=== PATIENT | female | born 1990 | race Caucasian/White ===

== ENCOUNTER 2018-05-12 17:39 | Emergency (ER) | payer OTHER, SELFPAY ==
[2018-05-12 18:14] LABS: Urine Blood NEGATIVE (NEG); Urine Glucose NEGATIVE (NEG); Urine Protein NEGATIVE (NEG); Urine Specific Gravity 1.025 (1.005-1.030); Urine pH 6.5 (5.0-7.0)
[2018-05-12] MEDS ORDERED: NA CHLORIDE 0.9% 1,000 ML ONE (18:33)
[2018-05-12] MEDS ORDERED: ONDANSETRON 4 MG/2 ML VIAL ONE (18:33)
[2018-05-12 18:46] LABS: Absolute Lymphocytes (CBC) 0.8 K/uL (0.7-4.9); Absolute Monocytes 0.6 K/uL (0.1-1.3); Absolute Neutrophil 11.9 K/uL (1.8-8.0); Basophils % 0.2 % (0-1.3); Eosinophils % 0.4 % (0-4.4); Hematocrit 51.6 % (36.0-45.0); MCH 33.2 pg (27.0-35.0); MCV 97.9 fL (80-100); Monocytes % 4.3 % (3.3-12.3); RBC Red Blood Cell Count 5.27 M/uL (3.86-4.86)
[2018-05-12] MEDS ORDERED: KETOROLAC 30 MG/ML INJ ONE (19:51)
--- NOTE | 2018-05-12 20:13 | EDPHYS ---
Physician Documentation [facility] Name: Fatuma Fallon Age: 28 yrs Sex: Female : 1990 Arrival Date: 05/12/2018 Time: 17:43 Bed 11 Private MD: ED Physician Ant Meng HPI: 05/12 18:56 This 28 yrs old Female presents to ER via Ambulatory with complaints of jr8 Headache, Ear Pain, Diarrhea, Nausea. 18:56 Patient with sudden onset of headache, chills, n/v/d, stomach cramps, chest pressure. jr8 Severity of symptoms: At their worst the symptoms were moderate in the emergency department the symptoms are unchanged. The patient has not experienced similar symptoms in the past. The patient has not recently seen a physician. 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 - Social history:: Smoking status: Patient uses tobacco products, smokes one-half pack cigarettes per day, Patient/guardian denies using street drugs. - Ebola Screening: : Patient negative for fever greater than or equal to 101.5 degrees Fahrenheit, and additional compatible Ebola Virus Disease symptoms Patient denies exposure to infectious person Patient denies travel to an Ebola-affected area in the 21 days before illness onset No symptoms or risks identified at this time. ROS: 18:56 Eyes: Negative for injury, pain, redness, and discharge, ENT: Negative for injury, jr8 pain, and discharge, Neck: Negative for injury, pain, and swelling, Respiratory: Negative for shortness of breath, cough, wheezing, and pleuritic chest pain, Back: Negative for injury and pain, MS/Extremity: Negative for injury and deformity, Skin: Negative for injury, rash, and discoloration. 18:56 Constitutional: Positive for body aches, chills. 18:56 Cardiovascular: Positive for chest pain, Negative for edema, orthopnea, palpitations, paroxysmal nocturnal dyspnea. 18:56 Abdomen/GI: Positive for abdominal pain, nausea, vomiting, and diarrhea, Negative for abdominal distension, anorexia, dysphagia, hematemesis, black/tarry stool, rectal pain, rectal bleeding, bowel incontinence, flatulence. 18:56 Neuro: Positive for headache, Negative for altered mental status, dizziness, gait disturbance, hearing loss, loss of consciousness, numbness, seizure activity, speech changes, syncope, near syncope, tingling, tinnitus, tremor, visual changes, weakness. Exam: 18:56 Head/Face: Normocephalic, atraumatic. Eyes: Pupils equal round and reactive to light, jr8 extra-ocular motions intact. Lids and lashes normal. Conjunctiva and sclera are non-icteric and not injected. Cornea within normal limits. Periorbital areas with no swelling, redness, or edema. ENT: Nares patent. No nasal discharge, no septal abnormalities noted. Tympanic membranes are normal and external auditory canals are clear. Oropharynx with no redness, swelling, or masses, exudates, or evidence of obstruction, uvula midline. Mucous membranes moist. Neck: Trachea midline, no thyromegaly or masses palpated, and no cervical lymphadenopathy. Supple, full range of motion without nuchal rigidity, or vertebral point tenderness. No Meningismus. Respiratory: Lungs have equal breath sounds bilaterally, clear to auscultation and percussion. No rales, rhonchi or wheezes noted. No increased work of breathing, no retractions or nasal flaring. Abdomen/GI: Soft, non-tender, with normal bowel sounds. No distension or tympany. No guarding or rebound. No evidence of tenderness throughout. Back: No spinal tenderness. No costovertebral tenderness. Full range of motion. Skin: Warm, dry with normal turgor. Normal color with no rashes, no lesions, and no evidence of cellulitis. MS/ Extremity: Pulses equal, no cyanosis. Neurovascular intact. Full, normal range of motion. Neuro: Awake and alert, GCS 15, oriented to person, place, time, and situation. Cranial nerves II-XII grossly intact. Motor strength 5/5 in all extremities. Sensory grossly intact. Cerebellar exam normal. Normal gait. 18:56 Cardiovascular: Rate: tachycardic, Rhythm: regular, Pulses: Pulses are 2+ in right radial artery and left radial artery. Heart sounds: normal, normal S1and S2, no S3 or S4, no murmur, no rub, no gallop, Edema: is not appreciated, JVD: is not appreciated. Vital Signs: 17:49 BP 135 / 93; Pulse 122; Resp 18; Temp 98.7; Pulse Ox 99% on R/A; ch 17:49 Weight 81.65 kg; Height 5 ft. 4 in. (162.56 cm); Pain 5/10; ch 17:55 Weight 82.6 kg (M); rv 20:28 BP 133 / 89; Pulse 98; Pulse Ox 100% on R/A; rv 17:55 Body Mass Index 31.26 (82.60 kg, 162.56 cm) rv MDM: 17:55 Patient medically screened. jr8 20:11 Differential Diagnosis flu, viral illness, gastroenteritis, colitis. Data reviewed: 8 vital signs, nurses notes, lab test result(s), EKG. Data interpreted: Pulse oximetry: on room air is 99 %. Interpretation: normal. Counseling: I had a detailed discussion with the patient and/or guardian regarding: the historical points, exam findings, and any diagnostic results supporting the discharge/admit diagnosis, lab results, the need for outpatient follow up, a family practitioner, to return to the emergency department if symptoms worsen or persist or if there are any questions or concerns that arise at home. Response to treatment: the patient's symptoms have markedly improved after treatment. 05/12 18:07 Order name: Urine Dipstick--Ancillary (enter results); Complete Time: 18:15 hb 05/12 18:07 Order name: Urine --Ancillary (enter results); Complete Time: 18:15 hb 05/12 18:24 Order name: CBC with Diff; Complete Time: 18:56 8 05/12 18:24 Order name: Basic Metabolic Panel; Complete Time: 18:59 8 05/12 18:24 Order name: Influenza Screen (a \T\ B); Complete Time: 19:08 8 05/12 18:24 Order name: IV; Complete Time: 19:22 8 05/12 18:24 Order name: EKG - Nurse/Tech; Complete Time: 19:42 8 05/12 18:25 Order name: EKG; Complete Time: 18:25 jr8 Administered Medications: 18:30 Drug: NS 0.9% 1000 ml Route: IV; Rate: 1000 ml; Site: left antecubital; rv 19:43 Follow up: IV Status: Completed infusion rv 18:30 Drug: Zofran 4 mg Route: IVP; Site: left antecubital; rv 19:23 Follow up: Response: No adverse reaction rv 19:45 Drug: TORadol 30 mg Route: IVP; Site: left antecubital; rv 20:27 Follow up: Response: No adverse reaction rv Disposition: 05/13 09:33 Co-signature as Attending Physician, Ant Meng MD I agree with the assessment and margaret plan of care. Disposition: 05/12/18 20:12 Discharged to Home. Impression: Dehydration, Gastroenteritis, Viral infection, unspecified. - Condition is Stable. - Discharge Instructions: Dehydration, Adult, Viral Gastroenteritis, Adult. - Prescriptions for ondansetron 4 mg Oral tablet,disintegrating - place 1 tablet by TRANSLINGUAL route every 8 hours As needed; 12 tablet. - Medication Reconciliation Form, Thank You Letter, Antibiotic Education, Prescription Opioid Use form. - Follow up: Private Physician; When: 2 - 3 days; Reason: Recheck today's complaints, Continuance of care, Re-evaluation by your physician. - Problem is new. - Symptoms have improved. Signatures: Dispatcher [employer] EDLorraine Patel, RN Ant Marti ch, MD MD cha Roszak, Josh, PA PA jr8 Jonny Umaña RN RN rv Corrections: (The following items were deleted from the chart) 05/12 20:29 20:12 05/12/2018 20:12 Discharged to Home. Impression: Dehydration; Gastroenteritis; rv Viral infection, unspecified. Condition is Stable. Forms are Medication Reconciliation Form, Thank You Letter, Antibiotic Education, Prescription Opioid Use. Follow up: Private Physician; When: 2 - 3 days; Reason: Recheck today's complaints, Continuance of care, Re-evaluation by your physician. Problem is new. Symptoms have improved. jr8
--- NOTE | 2018-05-12 20:13 | ER ---
Nurse's Notes [facility] Name: Fatuma Fallon Age: 28 yrs Sex: Female : 1990 Arrival Date: 05/12/2018 Time: 17:43 Bed 11 Private MD: Diagnosis: Dehydration;Gastroenteritis;Viral infection, unspecified Presentation: 05/12 17:48 Presenting complaint: Patient states: diarrhea all morning, cant eat, nausea, headache, ch jaycob ear pain, stomach cramps/burning.s tarted this morning. Transition of care: patient was not received from another setting of care. Onset of symptoms was May 12, 2018 at 07:00. Risk Assessment: Do you want to hurt yourself or someone else? Patient reports no desire to harm self or others. Initial Sepsis Screen: Does the patient meet any 2 criteria? No. Patient's initial sepsis screen is negative. Does the patient have a suspected source of infection? No. Patient's initial sepsis screen is negative. Care prior to arrival: aldo this am. 17:48 Method Of Arrival: Ambulatory 17:48 Acuity: LANA 3 ch Triage Assessment: 17:55 Headache History: Denies prior headaches. General: Appears in no apparent distress. rv comfortable, Behavior is calm, cooperative. Pain: Pain currently is 7 out of 10 on a pain scale. Pain began gradually, Also complains of no other associated symptoms. 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 - Social history:: Smoking status: Patient uses tobacco products, smokes one-half pack cigarettes per day, Patient/guardian denies using street drugs. - Ebola Screening: : Patient negative for fever greater than or equal to 101.5 degrees Fahrenheit, and additional compatible Ebola Virus Disease symptoms Patient denies exposure to infectious person Patient denies travel to an Ebola-affected area in the 21 days before illness onset No symptoms or risks identified at this time. Screenin:54 Abuse screen: Denies threats or abuse. Denies injuries from another. Nutritional rv screening: No deficits noted. Tuberculosis screening: No symptoms or risk factors identified. Fall Risk None identified. Assessment: 17:53 General: Appears in no apparent distress. comfortable, Behavior is calm, cooperative. rv Pain: Complains of pain in abdomen. Neuro: Level of Consciousness is awake, alert, obeys commands, Oriented to person, place, time, situation. Cardiovascular: Capillary refill < 3 seconds. Respiratory: Airway is patent. GI: Reports lower abdominal pain. : No signs and/or symptoms were reported regarding the genitourinary system. EENT: No signs and/or symptoms were reported regarding the EENT system. Derm: Skin is intact. Vital Signs: 17:49 BP 135 / 93; Pulse 122; Resp 18; Temp 98.7; Pulse Ox 99% on R/A; ch 17:49 Weight 81.65 kg; Height 5 ft. 4 in. (162.56 cm); Pain 5/10; ch 17:55 Weight 82.6 kg (M); rv 20:28 BP 133 / 89; Pulse 98; Pulse Ox 100% on R/A; rv 17:55 Body Mass Index 31.26 (82.60 kg, 162.56 cm) rv ED Course: 17:43 Patient arrived in ED. mr 17:49 Triage completed. ch 17:49 Arm band placed on left wrist. Patient placed in an exam room, on a stretcher. ch 17:54 Patient has correct armband on for positive identification. Bed in low position. Call rv light in reach. Side rails up X 1. Adult w/ patient. Pulse ox on. NIBP on. 17:55 Fletcher Ugalde PA is [facility]. jr8 17:55 Ant Meng MD is Attending Physician. jr8 18:30 Inserted saline lock: 20 gauge in left antecubital area, using aseptic technique. rv 18:30 Initial lab(s) drawn, by me, sent to lab. Flu and/or RSV swab sent to lab. rv 20:29 No provider procedures requiring assistance completed. IV discontinued, bleeding rv controlled, No redness/swelling at site. Pressure dressing applied. Administered Medications: 18:30 Drug: NS 0.9% 1000 ml Route: IV; Rate: 1000 ml; Site: left antecubital; rv 19:43 Follow up: IV Status: Completed infusion rv 18:30 Drug: Zofran 4 mg Route: IVP; Site: left antecubital; rv 19:23 Follow up: Response: No adverse reaction rv 19:45 Drug: TORadol 30 mg Route: IVP; Site: left antecubital; rv 20:27 Follow up: Response: No adverse reaction rv Outcome: 20:12 Discharge ordered by MD. conklin 20:29 Discharged to home ambulatory. rv 20:29 Condition: good 20:29 Discharge instructions given to patient, Instructed on discharge instructions, follow up and referral plans. medication usage, Demonstrated understanding of instructions, follow-up care, medications, Prescriptions given X 1. 20:29 Patient left the ED. rv Signatures: Lorraine Sandoval, RN Radha Anguiano ch, Josh, PA PA jr8 Vicente, Ronaldo, RN RN rv
[2018-05-12 21:49] VITALS: TEMP 98.7
[2018-05-12 21:50] VITALS: BP 133/89; O2SAT 100
--- NOTE | 2018-05-13 07:51 | EKG ---
Test Date: 2018-05-12 Test Time: 19:40:01 Instructor Traffic Safety: MEASUREMENT RESULTS: Intervals: Rate: 90 MS: 148 QRSD: 74 QT: 352 QTc: 430 Seymour: P: 40 MS: 148 QRS: 42 T: 64 INTERPRETIVE STATEMENTS: Normal sinus rhythm Anteroseptal infarct, age undetermined Abnormal ECG No previous ECG available for comparison Electronically Signed On 05-13-18 07:50:59 CDT by Storm Sterling
== END 2018-05-12 20:29 | disposition home or self-care (01) ==
LOC: ER 17:39
DX: E86.0 Dehydration (principal); K52.9 Noninfective gastroenteritis and colitis, unspecified; B34.9 Viral infection, unspecified; F17.210 Nicotine dependence, cigarettes, uncomplicated
CPT/HCPCS: 36415; 80048; 81003; 81025; 85025; 87804; 93005; 96361; 96374; 96375; 99284; J2405; J7030

== ENCOUNTER 2020-10-24 23:18 | Emergency (ER) | payer BC, SELFPAY ==
--- OUTSIDE RECORDS SUMMARY | 2020-10-24 23:52 | XMS REPORT | Continuity of Care Document ---
:1990 Author Organization [facility] t Address [address] [place] [address] Care Team Providers Name Role Phone Provider, Urgent Care Attending Clinician Unavailable Doctor Unassigned, Name Attending Clinician Unavailable Problems This patient has no known problems. Allergies, Adverse Reactions, Alerts This patient has no known allergies or adverse reactions. Medications This patient has no known medications. Procedures This patient has no known procedures. Encounters Start End Encounter Admission Attending Care Care Encounter Source Date/Time Date/Time Type Type Clinicians Facility Department ID 2020-08-02 2020-08-02 Urgent Provider, [facility] [id number] 10:19:40 11:11:19 [facility] [id number] Care [place] [id number] Ivanna [id number] [address] 2020-08-02 2020-08-02 Letter Doctor PETERSON [id number] 00:00:00 00:00:00 (Out) Unassigned, LUÍS [id number] Bradley [facility] [id number] Results This patient has no known results.
[2020-10-24] MEDS ORDERED: NA CHLORIDE 0.9% 1,000 ML ONE (23:59)
[2020-10-25 00:33] LABS: Absolute Lymphocytes (CBC) 3.1 K/uL (0.7-4.9); Basophils % 0.8 % (0-1.3); Hematocrit 41.8 % (36.0-45.0); Lymphocytes % 41.7 % (15.3-44.8); MPV 10.5 fL (7.6-11.3); RBC Red Blood Cell Count 4.31 M/uL (3.86-4.86)
[2020-10-25 00:50] LABS: BUN Blood Urea Nitrogen 8 mg/dL (7-18); Bicarbonate 22 mmol/L (21-32); Glucose Level 96 mg/dL (74-106); Potassium 3.9 mmol/L (3.5-5.1); Sodium Level 140 mmol/L (136-145); Troponin (Emerg Dept Use Only) < 0.02 ng/mL (0.0-0.045)
[2020-10-25 01:25] LABS: Urine Glucose NEGATIVE (Negative); Urine Specific Gravity 1.015 (1.005-1.030)
[2020-10-25 01:26] LABS: Urine Blood NEGATIVE (Negative); Urine Protein NEGATIVE (Negative)
[2020-10-25 01:37] LABS: Urine Bacteria <20 /HPF (<20); Urine RBC <5 /HPF (NONE SEEN)
--- NOTE | 2020-10-25 02:41 | ER ---
Nurse's Notes [facility] Name: Fatuma Fallon Age: 30 yrs Sex: Female : 1990 Arrival Date: 10/24/2020 Time: 23:20 Bed 6 Private MD: Diagnosis: Palpitations Presentation: 10/24 23:30 Chief complaint: Patient states: chest pain with palpitations dizziness and shortness em of breath for 1 week. Coronavirus screen: Client denies travel out of the [place] in the last 14 days. Ebola Screen: Patient negative for fever greater than or equal to 101.5 degrees Fahrenheit, and additional compatible Ebola Virus Disease symptoms Patient denies exposure to infectious person. Patient denies travel to an Ebola-affected area in the 21 days before illness onset. No symptoms or risks identified at this time. Initial Sepsis Screen: Does the patient meet any 2 criteria? No. Patient's initial sepsis screen is negative. Does the patient have a suspected source of infection? No. Patient's initial sepsis screen is negative. Risk Assessment: Do you want to hurt yourself or someone else? Patient reports no desire to harm self or others. Onset of symptoms was October 21, 2020. 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 - Social history:: Smoking status: Patient reports the use of cigarette tobacco products, denies chronic smoking, but will smoke occasionally. - Family history:: not pertinent. - Hospitalizations: : No recent hospitalization is reported. Screenin:38 Abuse screen: Denies threats or abuse. Nutritional screening: No deficits noted. ea Tuberculosis screening: No symptoms or risk factors identified. Fall Risk None identified. Assessment: 10/25 00:00 General: Appears in no apparent distress. Behavior is calm, cooperative, appropriate ea for age. Pain: Complains of pain in chest Pain does not radiate. Neuro: Level of Consciousness is awake, alert, obeys commands, Oriented to person, place, time, situation. Cardiovascular: Reports chest pain, Patient's skin is warm and dry. Respiratory: Airway is patent Respiratory effort is even, unlabored, Respiratory pattern is regular, symmetrical. Derm: Skin is pink, warm \T\ dry. 02:22 Reassessment: Patient and/or family updated on plan of care and expected duration. Pain ea level reassessed. Patient is alert, oriented x 3, equal unlabored respirations, skin warm/dry/pink. 02:53 Reassessment: Patient and/or family updated on plan of care and expected duration. Pain ea level reassessed. Patient is alert, oriented x 3, equal unlabored respirations, skin warm/dry/pink. Discharge instruction given to patient verbalized the understanding of instruction. Pt left ED ambulatory tolerating well. Vital Signs: 10/24 23:30 BP 145 / 103; Pulse 85; Resp 18; Temp 98.9(O); Pulse Ox 100% on R/A; Weight 74.84 kg; em Height 5 ft. 1 in. (154.94 cm); Pain 0/10; 23:30 Body Mass Index 31.18 (74.84 kg, 154.94 cm) em ED Course: 23:20 Patient arrived in ED. ag3 23:23 Rogerio Goldsmith MD is Attending Physician. rn 23:31 Triage completed. em 23:32 Arm band placed on. em 23:38 Sandra Connolly, DEMOND is Primary Nurse. ea 23:38 Patient has correct armband on for positive identification. Bed in low position. Call ea light in reach. monitoring manager on. Pulse ox on. NIBP on. 23:38 Patient maintains SpO2 saturation greater than 95% on room air. ea 23:55 Inserted saline lock: 22 gauge in left forearm, using aseptic technique. Blood ds4 collected. 10/25 00:08 XRAY Chest (1 view) In Process Unspecified. EDMS 00:20 Urine Microscopic Only Sent. ds4 00:20 Urine Dipstick--Ancillary (enter results) Sent. ds4 02:48 Carter Willoughby MD is Referral Physician. rn 02:54 No provider procedures requiring assistance completed. IV discontinued, intact, ea bleeding controlled, No redness/swelling at site. Pressure dressing applied. Administered Medications: 10/24 23:46 Drug: NS 0.9% 1000 ml Route: IV; Rate: 1000 ml; Site: left antecubital; ea Outcome: 10/25 02:40 Discharge ordered by . rn 02:54 Discharged to home ambulatory. ea 02:54 Condition: stable 02:54 Discharge instructions given to patient, Instructed on discharge instructions, follow up and referral plans. Demonstrated understanding of instructions, follow-up care. 02:54 Patient left the ED. ea Signatures: Dispatcher [employer] Marc Keith RN Rogerio Segura MD MD rn Swanson, Donovan ds4 Sandra Connolly RN RN ea Gomez, Alice ag3
--- NOTE | 2020-10-25 02:41 | EDPHYS ---
Physician Documentation [facility] Name: Fatuma Fallon Age: 30 yrs Sex: Female : 1990 Arrival Date: 10/24/2020 Time: 23:20 Bed 6 Private MD: ED Physician Rogerio Goldsmith HPI: 10/25 00:12 This 30 yrs old Female presents to ER via Ambulatory with complaints of Chest rn Pain. 00:12 The patient presents with a history of heart skipping beats. Context: The symptoms rn occur at rest, with anxiety. Onset: The symptoms/episode began/occurred 1 week(s) ago. Duration: The patient or guardian reports multiple episodes, that are intermittent. Modifying factors: The symptoms are aggravated by nothing. The symptoms are alleviated by nothing. Severity of symptoms: At their worst the symptoms were moderate in the emergency department the symptoms have improved. The patient has experienced a previous episode. Reports palpitations, feels like "skipping beats", intermittent for 1 week. No syncope/chest pain. Reports last for seconds then goes away, not worse or better with anything. Has happened once before and told that was either smoking related or a manifestation of her anxiety. Parents with cardiac problems but not until later in life. No change in medication.. 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 - Social history:: Smoking status: Patient reports the use of cigarette tobacco products, denies chronic smoking, but will smoke occasionally. - Family history:: not pertinent. - Hospitalizations: : No recent hospitalization is reported. ROS: 10/25 00:14 Constitutional: Negative for fever, chills, and weight loss, Eyes: Negative for injury, rn pain, redness, and discharge, Neck: Negative for injury, pain, and swelling, Cardiovascular: Negative for edema Respiratory: Negative for cough, wheezing, and pleuritic chest pain, Abdomen/GI: Negative for abdominal pain, nausea, vomiting, diarrhea, and constipation, Back: Negative for injury and pain, MS/Extremity: Negative for injury and deformity, Skin: Negative for injury, rash, and discoloration, Neuro: Negative for headache, numbness, tingling, and seizure. Exam: 00:14 Constitutional: This is a well developed, well nourished patient who is awake, alert, rn and in no acute distress. Ambulatory to room without difficulty or distress. Head/Face: Normocephalic, atraumatic. Eyes: Pupils equal round and reactive to light, extra-ocular motions intact. Lids and lashes normal. Conjunctiva and sclera are non-icteric and not injected. Cornea within normal limits. Periorbital areas with no swelling, redness, or edema. Cardiovascular: Regular rate and rhythm. No pulse deficits. Respiratory: No increased work of breathing, no retractions or nasal flaring. Abdomen/GI: soft, non-tender Skin: Warm, dry with normal turgor. Normal color with no rashes, no lesions, and no evidence of cellulitis. MS/ Extremity: Pulses equal, no cyanosis. Neurovascular intact. Full, normal range of motion. Equal circumference. Neuro: Awake and alert, GCS 15, oriented to person, place, time, and situation. Cranial nerves II-XII grossly intact. Motor strength 5/5 in all extremities. Sensory grossly intact. Cerebellar exam normal. Normal gait. 00:16 ECG was reviewed by the Attending Physician. rn Vital Signs: 10/24 23:30 BP 145 / 103; Pulse 85; Resp 18; Temp 98.9(O); Pulse Ox 100% on R/A; Weight 74.84 kg; em Height 5 ft. 1 in. (154.94 cm); Pain 0/10; 23:30 Body Mass Index 31.18 (74.84 kg, 154.94 cm) em MDM: 23:23 Patient medically screened. rn 10/25 02:39 Differential diagnosis: arrythmia, dehydration, stress disorder. Data reviewed: vital rn signs, nurses notes, lab test result(s), EKG, radiologic studies, plain films, and as a result, I will discharge patient. Counseling: I had a detailed discussion with the patient and/or guardian regarding: the historical points, exam findings, and any diagnostic results supporting the discharge/admit diagnosis, lab results, radiology results, the need for outpatient follow up, to return to the emergency department if symptoms worsen or persist or if there are any questions or concerns that arise at home. Response to treatment: the patient's condition has returned to base line, the patient is now symptom free, and as a result, I will discharge patient. Special discussion: I discussed with the patient/guardian in detail that at this point there is no indication for admission to the hospital. It is understood, however, that if the symptoms persist or worsen the patient needs to return immediately for re-evaluation. Based on the history and exam findings, there is no indication for further emergent testing or inpatient evaluation. I discussed with the patient/guardian the need to see the dope edger for further evaluation of the symptoms. I discussed with the patient/guardian the need to see the primary care provider for further evaluation of the symptoms. ED course: No arrhythmia on monitor, single pvc on ECG, neg trop and ddimer, stable vitals, BP 118/80 and asymptomatic. Will dc home with pcp and cardiology f/u, but told her most importantly to stop smoking.. 02:41 Counseling: I had a detailed discussion with the patient and/or guardian regarding: rn smoking cessation. 10/24 23:36 Order name: Basic Metabolic Panel rn 10/24 23:36 Order name: CBC with Diff; Complete Time: 00:46 rn 10/24 23:36 Order name: Magnesium; Complete Time: 02:38 rn 10/24 23:36 Order name: Troponin (emerg Dept Use Only); Complete Time: 02:38 rn 10/24 23:36 Order name: Urine Microscopic Only; Complete Time: 02:38 rn 10/24 23:36 Order name: TSH; Complete Time: 02:38 rn 10/24 23:36 Order name: XRAY Chest (1 view) rn 10/24 23:36 Order name: T4 Free; Complete Time: 02:38 rn 10/24 23:37 Order name: Basic Metabolic Panel; Complete Time: 02:38 EDMS 10/25 00:14 Order name: D-Dimer rn 10/25 00:14 Order name: D-Dimer; Complete Time: 00:46 EDMS 10/25 00:19 Order name: Urine Dipstick--Ancillary (enter results); Complete Time: 02:38 ds4 10/25 00:20 Order name: Urine --Ancillary (enter results) ds4 10/25 00:20 Order name: Urine --Ancillary; Complete Time: 02:38 EDMS 10/24 23:36 Order name: EKG; Complete Time: 23:37 rn 10/24 23:36 Order name: Cardiac monitoring; Complete Time: 00:02 rn 10/24 23:36 Order name: EKG - Nurse/Tech; Complete Time: 00:02 rn 10/24 23:36 Order name: IV Saline Lock; Complete Time: 23:52 rn 10/24 23:36 Order name: Labs collected and sent; Complete Time: 23:51 rn 10/24 23:36 Order name: O2 Per Protocol; Complete Time: 23:51 rn 10/24 23:36 Order name: O2 Sat Monitoring; Complete Time: 23:51 rn 10/24 23:36 Order name: Urine Test (obtain specimen); Complete Time: 00: rn 10/24 23:36 Order name: Urine Dipstick-Ancillary (obtain specimen); Complete Time: 00:03 rn EC:16 Rate is 81 beats/min. Rhythm is irregular. QRS [place] is Normal. DC interval is normal. rn QRS interval is normal. QT interval is normal. No Q waves. T waves are Normal. No ST changes noted. Clinical impression: NSR with sinus arrhythmia and PVC. Interpreted by me. Reviewed by me. Administered Medications: 10/24 23:46 Drug: NS 0.9% 1000 ml Route: IV; Rate: 1000 ml; Site: left antecubital; ea Disposition: 10/25/20 02:40 Discharged to Home. Impression: Palpitations. - Condition is Stable. - Discharge Instructions: Palpitations. - Medication Reconciliation Form, Thank You Letter, Antibiotic Education, Prescription Opioid Use form. - Follow up: Carter Wilolughby MD; When: As needed; Reason: Recheck today's complaints, Re-evaluation by your physician. - Problem is new. - Symptoms have improved. Signatures: Dispatcher [employer] [facility] Marc Odom RN Rogerio Segura MD MD rn Antunez, Elena, RN RN ea Corrections: (The following items were deleted from the chart) 10/25 00:15 00:12 Reports palpitations, feels like "skipping beats", intermittent for 1 week. No rn syncope/chest pain. Reports last for seconds then goes away, not worse or better with anything. Has happened once before and told that was either smoking related or anxiety. . rn 02:48 02:40 10/25/2020 02:40 Discharged to Home. Impression: Palpitations. Condition is rn Stable. Forms are Medication Reconciliation Form, Thank You Letter, Antibiotic Education, Prescription Opioid Use. Follow up: Private Physician; When: As needed; Reason: Recheck today's complaints, Re-evaluation by your physician. Problem is new. Symptoms have improved. rn 02:54 02:48 10/25/2020 02:40 Discharged to Home. Impression: Palpitations. Condition is ea Stable. Discharge Instructions: Palpitations. Forms are Medication Reconciliation Form, Thank You Letter, Antibiotic Education, Prescription Opioid Use. Follow up: Carter Willoughby; When: As needed; Reason: Recheck today's complaints, Re-evaluation by your physician. Problem is new. Symptoms have improved. rn
[2020-10-25 04:54] VITALS: BP 145/103; TEMP 98.9; O2SAT 100
--- NOTE | 2020-10-25 10:23 | RAD REPORT ---
EXAM DESCRIPTION: Chest Radiography COMPARISON: None. CLINICAL HISTORY: [facility] MAIN CHEST PAIN FINDINGS: A single AP view of the chest demonstrates a normal cardiomediastinal silhouette. No pneumothorax or pleural effusion. No consolidation or pulmonary edema. Osseous structures are intact. IMPRESSION: No acute chest process. Electronically signed by: Vinh Gómez MD 10/25/2020 12:16 AM CDT Due to temporary technical issues with the PACS/Fluency reporting system, reports are being signed by the in house radiologist without review as a courtesy to ensure prompt reporting. The interpreting r adiologist is fully responsible for the content of the report.
--- NOTE | 2020-10-25 17:01 | EKG ---
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
[2020-11-01 15:26] LABS: Urine Blood Negative (Negative); Urine Glucose Negative (Negative); Urine Protein Negative (Negative); Urine Specific Gravity 1.015 (1.005-1.030)
== END 2020-10-25 02:54 | disposition home or self-care (01) ==
LOC: ER 23:18
DX: R00.2 Palpitations (principal); F41.9 Anxiety disorder, unspecified; F17.210 Nicotine dependence, cigarettes, uncomplicated
CPT/HCPCS: 93005; 85025; 80048; 36415; 83735; 81025; 85379; 84443; 84484; 84439; 71045; J7030; 81003; 81015; 99285

== ENCOUNTER 2021-07-16 09:07 | Emergency (ER) | payer BC ==
--- OUTSIDE RECORDS SUMMARY | 2021-07-16 09:11 | XMS REPORT | Continuity of Care Document ---
:1990 Author Organization [facility] t Address [address] [place] [address] Care Team Providers Name Role Phone Provider, Urgent Care Attending Clinician Unavailable BRAULIO, Duarte Attending Clinician Unavailable Doctor Unassigned, Name Attending Clinician Unavailable Payers Payer Name Policy Type Policy Number Effective Date Expiration Date S [facility] [id number] 2020 00:00:00 Problems This patient has no known problems. Allergies, Adverse Reactions, Alerts Allergy Allergy Status Severity Reaction(s) Onset Inactive Treating Comm ents Source Name Type Date Date Clinician NO KNOWN Drug [facility] Medic[facility] This patient has no known medications. Procedures This patient has no known procedures. Encounters Start End Encounter Admission Attending Care Care Encounter Source Date/Time Date/Time Type Type Clinicians Facility Department ID 2020-08-02 2020-08-02 [facility] [id number] 10:19:40 11:11:19 [facility] [id number] [facility] [id number] Ivanna [id number] [address] 2020-08-02 2020-08-02 Outpatient Montez RAMSEY [facility] [id number] 10:20:00 10:20:00 RUPERTO [facility] 2020-08-02 2020-08-02 Outpatient Montez RAMSEY [facility] [id number] 08:35:00 08:35:00 RUPERTO [facility] 2020-08-02 2020-08-02 Letter Doctor NICHOLAS [id number] 00:00:00 00:00:00 (Out) Unassigned, LUÍS [id number] [place] [facility] [id number] Results This patient has no known results.
--- NOTE | 2021-07-16 10:17 | ER ---
Nurse's Notes [facility] Name: Fatuma Fallon Age: 31 yrs Sex: Female : 1990 Arrival Date: 07/16/2021 Time: 09:10 Bed 12 Private MD: Diagnosis: Acute upper respiratory infection, unspecified;Acute bronchitis, unspecified Presentation: 07/16 09:20 Chief complaint: Patient states: Sinus pain and pressure, bilateral ear pain, ww congestion, sore throat, nausea, diarrhea and burning in chest when taking a deep breath. Symptoms started a week ago and has progressively gotten worse. Coronavirus screen: Vaccine status: Patient reports being unvaccinated. Client denies travel out of the [place] in the last 14 days. congestion, diarrhea, nausea, runny nose, sore throat. Ebola Screen: Patient negative for fever greater than or equal to 101.5 degrees Fahrenheit, and additional compatible Ebola Virus Disease symptoms Patient denies exposure to infectious person. Patient denies travel to an Ebola-affected area in the 21 days before illness onset. Initial Sepsis Screen: Does the patient meet any 2 criteria? No. Patient's initial sepsis screen is negative. Does the patient have a suspected source of infection? No. Patient's initial sepsis screen is negative. Risk Assessment: Do you want to hurt yourself or someone else? Patient reports no desire to harm self or others. Onset of symptoms was July 09, 2021. 09:20 Method Of Arrival: Ambulatory 09:20 Acuity: LANA 4 Triage Assessment: 09:23 Headache History: The patient has had previous headaches and this one is similar to previous episodes. General: Appears well groomed, well developed, well nourished, Behavior is calm, cooperative, appropriate for age. Pain: Complains of pain in forehead, right eye, right cheek, nose, left cheek and left eye Pain currently is 5 out of 10 on a pain scale. Pain began gradually, Also complains of nausea. EENT: Reports nasal congestion. Neuro: Level of Consciousness is awake, alert, obeys commands, Oriented to person, place, time, situation, Gait is steady, Speech is normal. Cardiovascular: No deficits noted. Denies chest pain, Capillary refill < 3 seconds. Respiratory: Reports cough that is pain with cough Airway is patent Respiratory effort is even, unlabored, Respiratory pattern is regular, symmetrical. GI: No deficits noted. Parent/caregiver reports the patient having diarrhea, nausea. : No deficits noted. No signs and/or symptoms were reported regarding the genitourinary system. Derm: No deficits noted. No signs and/or symptoms reported regarding the dermatologic system. Skin is intact, is healthy with good turgor, Skin is pink, warm \T\ dry. Musculoskeletal: No deficits noted. No signs and/or symptoms reported regarding the musculoskeletal system. 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 - Social history:: Smoking status: Patient reports the use of cigarette tobacco products. Screenin:53 Abuse screen: Denies threats or abuse. Nutritional screening: No deficits noted. ap3 Tuberculosis screening: No symptoms or risk factors identified. Fall Risk None identified. Assessment: 09:52 General: Appears in no apparent distress. Behavior is calm, cooperative, appropriate ap3 for age, Reports chills for >3 days, fever for > 3 days, feeling ill for > 3 days, fatigue for >3 days. Pain: Complains of pain in generalized body aches Pain began for approx one week. Neuro: Level of Consciousness is awake, alert, obeys commands, Oriented to person, place, time, situation, Appropriate for age Gait is steady, Speech is normal. Cardiovascular: Capillary refill < 3 seconds Patient's skin is warm and dry. Respiratory: Reports cough that is productive, Airway is patent Respiratory effort is even, unlabored, Respiratory pattern is regular, symmetrical, Breath sounds are clear bilaterally. the patient has mild shortness of breath. 11:58 Reassessment: notified patient of test results via phone call. ap3 Vital Signs: 09:20 BP 121 / 83; Pulse 88; Resp 18; Temp 98.3(O); Pulse Ox 100% ; Weight 77.11 kg; Height 5 ww ft. 4 in. (162.56 cm); Pain 0/10; 09:20 Body Mass Index 29.18 (77.11 kg, 162.56 cm) Hannah Coma Score: 10:17 Eye Response: spontaneous(4). Verbal Response: oriented(5). Motor Response: obeys margaret commands(6). Total: 15. ED Course: 09:10 Patient arrived in ED. rg4 09:23 Triage completed. ww 09:23 Arm band placed on right wrist. ww 09:29 Ant Meng MD is Attending Physician. margaret 09:32 Cara Silva, RN is Primary Nurse. ap3 09:53 Patient has correct armband on for positive identification. Call light in reach. Side ap3 rails up X 1. Pulse ox on. NIBP on. Door closed. Noise minimized. 09:53 No provider procedures requiring assistance completed. Patient did not have IV access ap3 during this emergency room visit. Administered Medications: No medications were administered Outcome: 10:16 Discharge ordered by . margaret 10:24 Discharged to home ambulatory. ap3 10:24 Condition: good 10:24 Discharge instructions given to patient, Instructed on discharge instructions, follow up and referral plans. medication usage, Demonstrated understanding of instructions, follow-up care, medications, Prescriptions given X 2. 10:24 Patient left the ED. ap3 Signatures: Ant Meng MD MD cha Garcia, Rubi rg4 Cara Silva, RN RN ap3 Melonie Correia RN RN
--- NOTE | 2021-07-16 10:17 | EDPHYS ---
Physician Documentation [facility] Name: Fatuma Fallon Age: 31 yrs Sex: Female : 1990 Arrival Date: 07/16/2021 Time: 09:10 Bed 12 Private MD: NELIDA Physician Ant Meng HPI: 07/16 10:07 This 31 yrs old Female presents to ER via Ambulatory with complaints of margaret Headache, Sore Throat, Ear Pain, Breathing Difficulty. 10:07 The patient complains of pain to the forehead, left frontal area and right frontal margaret area. The patient describes the headache as aching. Onset: The symptoms/episode began/occurred 5 day(s) ago. 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 - Social history:: Smoking status: Patient reports the use of cigarette tobacco products. ROS: 10:12 Constitutional: Negative for fever, chills, and weight loss, Eyes: Negative for injury, margaret pain, redness, and discharge, ENT: Negative for injury, pain, and discharge, Neck: Negative for injury, pain, and swelling, Cardiovascular: Negative for chest pain, palpitations, and edema, Abdomen/GI: Negative for abdominal pain, nausea, vomiting, diarrhea, and constipation, Back: Negative for injury and pain, : Negative for injury, bleeding, discharge, and swelling, MS/Extremity: Negative for injury and deformity, Skin: Negative for injury, rash, and discoloration, Neuro: Negative for headache, weakness, numbness, tingling, and seizure, Psych: Negative for depression, anxiety, suicide ideation, homicidal ideation, and hallucinations, Allergy/Immunology: Negative for hives, rash, and allergies, Endocrine: Negative for neck swelling, polydipsia, polyuria, polyphagia, and marked weight changes. 10:12 Respiratory: Positive for cough, with no reported sputum. Exam: 10:12 Constitutional: This is a well developed, well nourished patient who is awake, alert, margaret and in no acute distress. Head/Face: Normocephalic, atraumatic. Eyes: Pupils equal round and reactive to light, extra-ocular motions intact. Lids and lashes normal. Conjunctiva and sclera are non-icteric and not injected. Cornea within normal limits. Periorbital areas with no swelling, redness, or edema. ENT: Nares patent. No nasal discharge, no septal abnormalities noted. Tympanic membranes are normal and external auditory canals are clear. Oropharynx with no redness, swelling, or masses, exudates, or evidence of obstruction, uvula midline. Mucous membranes moist. Neck: Trachea midline, no thyromegaly or masses palpated, and no cervical lymphadenopathy. Supple, full range of motion without nuchal rigidity, or vertebral point tenderness. No Meningismus. Chest/axilla: Normal chest wall appearance and motion. Nontender with no deformity. No lesions are appreciated. Cardiovascular: Regular rate and rhythm with a normal S1 and S2. No gallops, murmurs, or rubs. Normal PMI, no JVD. No pulse deficits. Respiratory: Lungs have equal breath sounds bilaterally, clear to auscultation and percussion. No rales, rhonchi or wheezes noted. No increased work of breathing, no retractions or nasal flaring. Back: No spinal tenderness. No costovertebral tenderness. Full range of motion. Female : Normal external genitalia. Skin: Warm, dry with normal turgor. Normal color with no rashes, no lesions, and no evidence of cellulitis. MS/ Extremity: Pulses equal, no cyanosis. Neurovascular intact. Full, normal range of motion. Neuro: Awake and alert, GCS 15, oriented to person, place, time, and situation. Cranial nerves II-XII grossly intact. Motor strength 5/5 in all extremities. Sensory grossly intact. Cerebellar exam normal. Normal gait. Psych: Awake, alert, with orientation to person, place and time. Behavior, mood, and affect are within normal limits. 10:12 Respiratory: the patient does not display signs of respiratory distress, Respirations: normal, Breath sounds: are clear throughout, Respiratory rate: 18 10:12 Musculoskeletal/extremity: DVT Exam: No signs of deep vein thrombosis. no pain, no swelling, no tenderness, negative Homans' sign noted on exam, no appreciated bluish discoloration, no erythema, no increased warmth. Vital Signs: 09:20 BP 121 / 83; Pulse 88; Resp 18; Temp 98.3(O); Pulse Ox 100% ; Weight 77.11 kg; Height 5 ww ft. 4 in. (162.56 cm); Pain 0/10; 09:20 Body Mass Index 29.18 (77.11 kg, 162.56 cm) ww Hamer Coma Score: 10:17 Eye Response: spontaneous(4). Verbal Response: oriented(5). Motor Response: obeys [facility] commands(6). Total: 15. MDM: 09:29 Patient medically screened. [facility] 10:17 Antibiotic administration: The patient is discharged and will get outpatient [facility] antibiotics, Amoxicillin. Differential diagnosis: bronchitis, flu, sinusitis. Differential Diagnosis: Bronchitis Influenza Upper Respiratory Infection Sinusitis Pharyngitis Allergic Rhinitis Pneumonia. Data reviewed: vital signs, nurses notes, lab test result(s). Data interpreted: gambling monitor: rate is 88 beats/min, Pulse oximetry: is not applicable for this patient encounter. Counseling: I had a detailed discussion with the patient and/or guardian regarding: the historical points, exam findings, and any diagnostic results supporting the discharge/admit diagnosis, lab results, the need for outpatient follow up, for definitive care, a family practitioner. 07/16 10:07 Order name: Strep ap3 07/16 10:08 Order name: Group A Streptococcus Rapid Sc EDMS Administered Medications: No medications were administered Disposition Summary: 07/16/21 10:16 Discharge Ordered Location: Home [facility] Problem: new [facility] Symptoms: have improved margaret Condition: Stable margaret Diagnosis - Acute upper respiratory infection, unspecified margaret - Acute bronchitis, unspecified margaret Followup: margaret - With: Private Physician - When: 2 - 3 days - Reason: Recheck today's complaints, Continuance of care, Re-evaluation by your physician Discharge Instructions: - Discharge Summary Sheet margaret - Acute Bronchitis, Adult margaret - Upper Respiratory Infection, Adult margaret - Cool Mist Vaporizer margaret - Acute Bronchitis, Adult, Pdki-rj-Giat margaret - Upper Respiratory Infection, Adult, Abdl-ro-Ekbe margaret - Cough, Adult margaret Forms: - Medication Reconciliation Form margaret - Thank You Letter margaret - Antibiotic Education margaret - Prescription Opioid Use [facility] Prescriptions: - Bromfed DM 2-30-10 mg/5 mL Oral syrup - take 10 milliliter by ORAL route every 6 hours; 180 milliliter; Refills: 0, [facility] Product Selection Permitted - Amoxicillin 500 mg Oral Capsule - take 1 capsule by ORAL route every 8 hours for 10 days; 30 tablet; Refills: 0, [facility] Product Selection Permitted Signatures: Dispatcher [employer] Ant Prince MD MD cha Wood, Whitney RN RN ww Corrections: (The following items were deleted from the chart) 10:08 10:08 Group A Streptococcus Rapid [id number].LAB.BRZ ordered. EDUT EDUT
[2021-07-16 10:29] VITALS: BP 121/83; TEMP 98.3; O2SAT 100
[2021-07-16 11:18] LABS: SARS-COV-2 RT PCR NEGATIVE (NEGATIVE)
== END 2021-07-16 10:24 | disposition home or self-care (01) ==
LOC: ER 09:07
DX: J20.9 Acute bronchitis, unspecified (principal); J06.9 Acute upper respiratory infection, unspecified; F31.9 Bipolar disorder, unspecified; Z20.822 Contact with and (suspected) exposure to COVID-19; Z72.0 Tobacco use
CPT/HCPCS: 87070; 87081; 0240U; 99283

== ENCOUNTER 2022-05-20 20:30 | Emergency (ER) | payer BC ==
[2012-02-09 02:54] VITALS: BP 107/70
--- OUTSIDE RECORDS SUMMARY | 2022-05-20 20:34 | XMS REPORT | Continuity of Care Document ---
:1990 Author Organization [facility] t Address [address] [place] [address] Care Team Providers Name Role Phone PAM HORNE JR Primary Care Physician Unavailable LENCHO MELTON Attending Clinician Unavailable CELESTE WOODALL Attending Clinician Unavailable Celeste Woodall PA-C Attending Clinician EPI MONZON Attending Clinician Unavailable Epi Monzon MD Attending Clinician Doctor Unassigned, [place] Attending Clinician Unavailable Provider, [facility] Attending Clinician Unavailable RUPERTO RAMSEY Attending Clinician Unavailable Payers Payer Name Policy Type Policy Number Effective Date Expiration Date Roby sauer [facility] [id number] 2022 00:00:00 BCBS [facility] [id number] 2020 00:00:00 Problems Condition Condition Condition Status Onset Resolution Last Treating Co mments Source Name Details Category Date Date Treatment Clinician Date Acute Acute Disease Active 2021-07 Marlene pharyngiti pharyngiti 0-06 Se evanold s s 00:00: - 00 Externa l Obesity Obesity Disease Active Univers (BMI (BMI 8-18 ity of 30-39.9) 30-39.9) 00:00: [place] [address] Medical Branch Allergies, Adverse Reactions, Alerts Allergy Allergy Status Severity Reaction(s) Onset Inactive Treating Comm ents Source Name Type Date Date Clinician NO KNOWN Drug Active Univers ALLERGIE Class ity of S [place] [facility] [place] Social History Social Habit Start Date Stop Date Quantity Comments Source History of tobacco Cigarette Smoker Marlene Medina - use External History [facility] o f Alcohol Comment [place] [facility] Exposure to 2022-03-18 2022-03-28 Not sure University of SARS-CoV-2 (event) 00:00:00 12:52:00 [facility] Alcohol intake 2022-03-28 2022-03-28 Current drinker Unive rsity of 00:00:00 00:00:00 of alcohol [place] [facility] (finding) Branch Cigarettes smoked 2020-08-02 2020-08-02 Univers ity of current (pack per 00:00:00 00:00:00 [facility] ) - Reported Branch Tobacco use and 2020-08-02 2020-08-02 Smokeless Universit y of exposure 00:00:00 00:00:00 tobacco non-user [facility] dical Branch History [facility] 2020-08-02 2020-08-02 2 University o f Alcohol Frequency 00:00:00 00:00:00 [facility] edical Branch History [facility] 2020-08-02 2020-08-02 1 University o f Alcohol Std Drinks 00:00:00 00:00:00 [place] [facility] History [facility] 2020-08-02 2020-08-02 1 University o f Alcohol Binge 00:00:00 00:00:00 [place] [facility] Sex Assigned At [birth year] Marlene Rosas ybold - 00:00:00 00:00:00 External Smoking Status Start Date Stop Date Source Smokes tobacco daily 2022-05-02 00:00:00 Marlene Medina - External Medications Ordered Filled Start Stop Current Ordering Indication Dosage Frequency Signature Comments Components Source Medication Medication Date Date Medication? Clinician (SIG) Name Name Benzonatate 2021-07 Yes [id number] 100mg [id number] Take 1 Marlene (Tessalon 0-06 [id number] capsule S cash Pierce) 100 00:00: 3D (100 mg - MG oral 00 total) by Externa Capsule mouth 3 l times daily as needed for cough Azithromyci 2021-07- Yes [id number] Take 2 Marlene n 250 MG 0-06 10-12 tablets by Seyb old oral Tablet 00:00: 04:59 mouth on - 00 :00 day 1 then Externa 1 tablet l by mouth daily for 4 days thereafter . norethindro 0 Yes [id number] 1{tbl} Take 1 Univers ne-e.estrad 8-18 tablet by ity of ioL-iron 00:00: mouth in [place] (LO 00 the Medical LOESTRIN morning. Branch FE) 1 mg-10 mcg (24)/10 mcg (2) per tablet norethindro Yes [id number] 1{tbl} Take 1 Univers ne-e.estrad 8-18 tablet by ity of ioL-iron 00:00: mouth in [place] (LO 00 the Medical LOESTRIN morning. Branch FE) 1 mg-10 mcg (24)/10 mcg (2) per tablet norethindro Yes [id number] 1{tbl} Take 1 Univers ne-e.estrad 8-18 tablet by ity of ioL-iron 00:00: mouth in [place] (LO 00 the Medical LOESTRIN morning. Branch FE) 1 mg-10 mcg (24)/10 mcg (2) per tablet benzonatate 0 Yes [id number] 100mg Take 1 Univers (TESSALON 1-06 capsule by ity of [place]) 100 00:00: mouth 3 [place] as mg capsule 00 (three) Medica l times Branch daily. azelastine Yes [id number] 1{spray Use 1 Univers 137 mcg 1-06 } [place] in ity of (0.1 %) 00:00: each [place] nasal spray 00 nostril 2 Med ical (two) Branch times daily. Use in each nostril as directed benzonatate 0 Yes [id number] 100mg Take 1 Univers (TESSALON 1-06 capsule by ity of [place]) 100 00:00: mouth 3 [place] as mg capsule 00 (three) Medica l times Branch daily. azelastine Yes [id number] 1{spray Use 1 Univers 137 mcg 1-06 } [place] in ity of (0.1 %) 00:00: each [place] nasal spray 00 nostril 2 Med ical (two) Branch times daily. Use in each nostril as directed benzonatate Yes [id number] 100mg Take 1 Univers (TESSALON 1-06 capsule by Jeannine) 100 00:00: mouth 3 [place] as mg capsule 00 (three) Medica l times Branch daily. azelastine Yes [id number] 1{spray Use 1 Univers 137 mcg 1-06 } [place] in ity of (0.1 %) 00:00: each [place] nasal spray 00 nostril 2 Med ical (two) Branch times daily. Use in each nostril as directed Vital Signs Vital Name Observation Time Observation Value Comments Source Heart rate 2022-05-02 20:07:00 100 /min Marlene S cash - External Body temperature 2022-05-02 20:07:00 36.89 Aline Paula hdez Vaughnold - External Respiratory rate 2022-05-02 20:07:00 14 /min Paula hdez Seevanold - External Body height 2022-05-02 20:07:00 162.6 cm Marlene Ca cash - External Body weight 2022-05-02 20:07:00 87.091 kg Marlene hdezchris - External BMI 2022-05-02 20:07:00 32.96 kg/m2 Marlene Ca cash - External Systolic blood 2022-05-02 20:07:00 114 mm[Hg] Marlene Medina - pressure External Diastolic blood 2022-05-02 20:07:00 64 mm[Hg] Marcelle Medina - pressure External Systolic blood 2022-03-28 18:17:00 109 mm[Hg] Gautam fishmany [facility] Diastolic blood 2022-03-28 18:17:00 72 mm[Hg] [facility] Heart rate 2022-03-28 18:17:00 63 /min [facility] Body temperature 2022-03-28 18:17:00 37 Aline [facility] Respiratory rate 2022-03-28 18:17:00 18 /min [facility] Body height 2022-03-28 18:17:00 165.1 cm [facility] Body weight 2022-03-28 18:17:00 85.458 kg [facility] BMI 2022-03-28 18:17:00 31.35 kg/m2 [facility] Procedures Procedure Date / Time Performing Clinician Source Performed US PELVIS COMPLETE WITH 2022-03-28 21:11:00 Celeste Woodall [facility] TRANSVAGINAL [facility] Encounters Start End Encounter Admission Attending Care Care Encounter Source Date/Time Date/Time Type Type Clinicians Facility Department ID 2022-05-30 2022-05-30 Outpatient MARLENE MELTON [id number] Marlene 14:15:00 14:15:00 LENCHO myles 2022-05-07 2022-05-07 Outpatient R [facility] [id number] Univers 15:00[facility]00 [facility] 2022-05-02 Outpatient MARLENE MELTON [id number] Marlene 15:15:00 15:15:00 LENCHO myles 2022-03-28 2022-03-28 Outpatient R JOSE C [facility] [id number] Univers 15:09:33 23:59:[address] [facility] [place] [place] 2022-03-28 2022-03-28 [facility] Jose [facility] [id number] Univers 15:09:33 23:59:00 Encounter Celeste STEPHENS [id number] [facility] [id number] [facility] [id number] [facility] 806 Branch 2022-03-28 2022-03-28 Outpatient R EPI MONZON [facility] [id number] Univers 13:30:00 13:56:[facility] 2022-03-28 2022-03-28 Office Epi Monzon [facility] [id number] Univers 13:30:00 13:56:28 Visit Freddy STEPHENS [id number] i ty [facility] [id number] [id number] Tn dical [facility] [address] 2022-03-28 2022-03-28 Outpatient R EPI MONZON [facility] [id number] Univers 13:00:00 13:00:[address] [facility] [place] [place] 2022 2022 Office Jose C [facility] [id number] Univers 14:15:00 15:12:40 Visit Celeste BERNARDWINDY [id number] i ty of [id number] [id number] [address] 2022 2022 Outpatient R JOSE C [facility] [id number] Univers 14:15:00 [facility]:12:[facility] [place] [place] 2022 2022 Outpatient R JOSE C [facility] [id number] Univers 14:15:00 15:12:40 [facility] 2022 2022 Outpatient R JOSE C [facility] [id number] Univers 14:15:00 15:12:40 [facility] 2022 2022 Orders Doctor NICHOLAS [id number] Univers 00:00:00 00:00:00 Only Unassigned, LUÍS [id number] ity of [place] [facility] [id number] [place] [id number] [address] 2020-08-02 2020-08-02 Urgent Provider, [facility] [id number] 10:19:40 11:11:19 Care Bertrand [facility] [id number] Care [place] [id number] Professio [id number] [address]al [address] 2020-08-02 2020-08-02 Outpatient R BRAULIO [facility] [id number] Univers 10:20:00 10:20:[address] [facility] [place] [place] 2020-08-02 2020-08-02 Outpatient R BRAULIO, [facility] [id number] Univers 08:35:00 08:35:[address] [facility] [place] 2020-08-02 2020-08-02 Letter Doctor NICHOLAS [id number] 00:00:00 00:00:00 (Out) Unassigned, LUÍS [id number] [place] [facility] [id number] Results This patient has no known results.
--- NOTE | 2022-05-20 21:47 | ER ---
Nurse's Notes [facility] Name: Fatuma Fallon Age: 32 yrs Sex: Female : 1990 Arrival Date: 05/20/2022 Time: 20:33 Bed Waiting Private MD: Diagnosis: ED Course: 05/20 20:33 Patient arrived in ED. am2 21:29 [facility]. Unable to locate patient. Will as6 disposition as left without being seen by a provider. Administered Medications: No medications were administered Outcome: 21:46 Patient left the ED. as6 Signatures: Cara Russell am2 Raciel Chavez, RN RN as6
== END 2022-05-20 21:46 | disposition left against medical advice (07) ==
LOC: ER 20:30
DX: Z02.9 Encounter for administrative examinations, unspecified (principal)

== ENCOUNTER 2022-09-25 11:32 | Emergency (ER) | payer BC ==
--- OUTSIDE RECORDS SUMMARY | 2022-09-25 11:59 | XMS REPORT | Continuity of Care Document ---
:1990 Author Organization [facility] t Address [address] [place] [address] Care Team Providers Name Role Phone PAM HORNE JR Primary Care Physician Unavailable LENCHO MELTON Attending Clinician Unavailable CELESTE WOODALL Attending Clinician Unavailable Celeste Woodall PA-C Attending Clinician EPI MONZON Attending Clinician Unavailable Epi Monzon MD Attending Clinician Doctor Unassigned, [place] Attending Clinician Unavailable Provider, [facility] Attending Clinician Unavailable RUPERTO RAMSEY Attending Clinician Unavailable Payers Payer Name Policy Type Policy Number Effective Date Expiration Date Roby sauer [facility] [id number] 2022 00:00:[address] [facility] [id number] 2020 00:00:00 Problems Condition Condition Condition Status Onset Resolution Last Treating Co mments Source Name Details Category Date Date Treatment Clinician Date Acute Acute Disease Active 2021-07 Marlene pharyngiti pharyngiti 0-06 Se evanold s s 00:00: - 00 Externa l Obesity Obesity Disease Active Univers (BMI (BMI 8-18 ity of 30-39.9) 30-39.9) 00:00: [place] [address] [facility] Branch Allergies, Adverse Reactions, Alerts Allergy Allergy Status Severity Reaction(s) Onset Inactive Treating Comm ents Source Name Type Date Date Clinician NO KNOWN Drug Active Univers ALLERGIE Class ity of S [place] [facility] [place] Social History Social Habit Start Date Stop Date Quantity Comments Source History of tobacco Cigarette Smoker Marlene Medina - use External History [facility] o f Alcohol Comment [place] [facility] Exposure to 2022-03-18 2022-03-28 Not sure University of SARS-CoV-2 (event) 00:00:00 12:52:00 [facility] Alcohol intake 2022-03-28 2022-03-28 Current drinker Unive rsity of 00:00:00 00:00:00 of alcohol [place] [facility] (finding) Branch Cigarettes smoked 2020-08-02 2020-08-02 Univers ity of current (pack per 00:00:00 00:00:00 [facility] ) - Reported Branch Tobacco use and 2020-08-02 2020-08-02 Smokeless Universit y of exposure 00:00:00 00:00:00 tobacco non-user [facility] dical Branch History [facility] 2020-08-02 2020-08-02 2 University o f Alcohol Frequency 00:00:00 00:00:00 [facility] edical Branch History [facility] 2020-08-02 2020-08-02 1 University o f Alcohol Std Drinks 00:00:00 00:00:00 [place] [facility] History [facility] 2020-08-02 2020-08-02 1 University o f Alcohol Binge 00:00:00 00:00:00 [place] [facility] Sex Ass[birth year] At [birth year] Marlene Rosas ybold - 00:00:00 00:00:00 External Smoking Status Start Date Stop Date Source Smokes tobacco daily 2022-05-02 00:00:00 Marlene Medina - External Medications Ordered Filled Start Stop Current Ordering Indication Dosage Frequency Signature Comments Components Source Medication Medication Date Date Medication? Clinician (SIG) Name Name Benzonatate 2021-07 Yes [id number] 100mg Q.[id number] Take 1 Marlene (Tessalon 0-06 [id number] capsule S cash Pierce) 100 00:00: 3D (100 mg - MG oral 00 total) by Externa Capsule mouth 3 l times daily as needed for cough Azithromyci 2021-07- No [id number] Take 2 Marlene n 250 MG 0-06 10-12 tablets by Seyb old oral Tablet 00:00: 04:59 mouth on - 00 :00 day 1 then Externa 1 tablet l by mouth daily for 4 days thereafter . norethindro 0 Yes [id number] 1{tbl} Take 1 Univers ne-e.estrad 8-18 tablet by ity of ioL-iron 00:00: mouth in [place] (LO 00 the Medical LOESTRIN morning. Branch FE) 1 mg-10 mcg (24)/10 mcg (2) per tablet norethindro 0 Yes [id number] 1{tbl} Take 1 Univers ne-e.estrad 8-18 tablet by ity of ioL-iron 00:00: mouth in [place] (LO 00 the Medical LOESTRIN morning. Branch FE) 1 mg-10 mcg (24)/10 mcg (2) per tablet norethindro 0 Yes [id number] 1{tbl} Take 1 Univers ne-e.estrad 8-18 tablet by ity of ioL-iron 00:00: mouth in [place] (LO 00 the Medical LOESTRIN morning. Branch FE) 1 mg-10 mcg (24)/10 mcg (2) per tablet benzonatate 2020-0 Yes [id number] 100mg Take 1 Univers (TESSALON 1-06 capsule by ity of [place]) 100 00:00: mouth 3 [place] as mg capsule 00 (three) Medica l times Branch daily. azelastine 0 Yes [id number] 1{spray Use 1 Univers 137 mcg 1-06 } Given in ity of (0.1 %) 00:00: each [place] nasal spray 00 nostril 2 Med ical (two) Branch times daily. Use in each nostril as directed benzonatate 2020-0 Yes [id number] 100mg Take 1 Univers (TESSALON 1-06 capsule by ity of [place]) 100 00:00: mouth 3 [place] as mg capsule 00 (three) Medica l times Branch daily. azelastine Yes [id number] 1{spray Use 1 Univers 137 mcg 1-06 } Given in ity of (0.1 %) 00:00: each [place] nasal spray 00 nostril 2 Med ical (two) Branch times daily. Use in each nostril as directed benzonatate Yes [id number] 100mg Take 1 Univers (TESSALON 1-06 capsule by Jeannine) 100 00:00: mouth 3 [place] as mg capsule 00 (three) Medica l times Branch daily. azelastine Yes [id number] 1{spray Use 1 Univers 137 mcg 1-06 } Given in ity of (0.1 %) 00:00: each [place] nasal spray 00 nostril 2 Med ical [...] blood 2022-03-28 18:17:00 109 mm[Hg] Gautam fishmany [facility] Diastolic blood 2022-03-28 18:17:00 72 mm[Hg] [facility] Heart rate 2022-03-28 18:17:00 63 /min [facility] Body temperature 2022-03-28 18:17:00 37 Aline [facility] Respiratory rate 2022-03-28 18:17:00 18 /min [facility] Body height 2022-03-28 18:17:00 165.1 cm [facility] Body weight 2022-03-28 18:17:00 85.458 kg [facility] BMI 2022-03-28 18:17:00 31.35 kg/m2 [facility] Procedures Procedure Date / Time Performing Clinician Source Performed US PELVIS COMPLETE WITH 2022-03-28 21:11:00 Celeste Woodall [facility] TRANSVAGINAL [facility] Encounters Start End Encounter Admission Attending Care Care Encounter Source Date/Time Date/Time Type Type Clinicians Facility Department ID 2022-05-30 2022-05-30 Outpatient MARLENE MELTON [id number] Marlene 14:15:00 14:15:00 LENCHO myles 2022-05-07 2022-05-07 Outpatient R [facility] [id number] Univers 15:00[facility]22-[facility]-02 2022-05-02 Outpatient MARLENE MELTON [id number] Marlene 15:15:00 15:15:00 LENCHO myles 2022-03-28 2022-03-28 Outpatient R JOSE C [facility] [id number] Univers 15:09:33 23:59:00 CELESTE ina [facility] 2022-03-28 2022-03-28 [email or web address] [id number] Univers 15:09:33 23:59:00 Encounter Celeste STEPHENS [id number] [facility] [id number] [facility] [id number] [facility] 806 Branch 2022-03-28 2022-03-28 Outpatient R EPI MONZON [facility] [id number] Univers 13:30:00 13:56:28 [facility] 2022-03-28 2022-03-28 Office Epi Monzon [facility] [id number] Univers 13:30:00 13:56:28 Visit Freddy STEPHENS [id number] i ty of [facility] [id number] [id number] Or dical [facility] [address] [facility] 2022-03-28 2022-03-28 Outpatient R EPI MONZON [facility] [id number] Univers 13:00:00 13:00:00 ity [facility] 2022 2022 Office Jose C [facility] [id number] Univers 14:15:00 15:12:40 Visit Celeste BERNARDWINDY [id number] i ty [place]2.[place] [id number] [address] 2022 2022 Outpatient R JOSE C [facility] [id number] Univers 14:15:00 15:12:40 [facility] 2022 2022 Outpatient R JOSE C [facility] [id number] Univers 14:15:00 15:12:40 [facility] 2022 2022 Outpatient R JOSE C [facility] [id number] Univers 14:15:00 15:12:40 [facility] 2022 2022 Orders Doctor NICHOLAS [id number] Univers 00:00:00 00:00:00 Only Unassigned, LUÍS [id number] ity of [place] [facility] [id number] [place] [id number] [address] 2020-08-02 2020-08-02 Urgent Provider, [facility] [id number] 10:19:40 11:11:19 Care [facility] [id number] Care [place] [id number] Professio [id number] [address]al [address] 2020-08-02 2020-08-02 Outpatient R BRAULIO [facility] [id number] Univers 10:20:00 10:20:00 RUPERTO moncada [facility] 2020-08-02 2020-08-02 Outpatient R BRAULIO, [facility] [id number] Univers 08:35:00 08:35:00 RUPERTO moncada [facility] 2020-08-02 2020-08-02 Letter Doctor NICHOLAS [id number] 00:00:00 00:00:00 (Out) Unassigned, LUÍS [id number] [place] [facility] [id number] [id number] Results This patient has no known results.
[2022-09-25 12:45] LABS: Urine Blood Negative (Negative); Urine Glucose Negative (Negative); Urine Protein Negative (Negative); Urine Specific Gravity 1.025 (1.005-1.030); Urine pH 5.5 (5.0-7.0)
[2022-09-25 13:01] LABS: Urine Specific Gravity/Preg 1.025 (1.005-1.030)
[2022-09-25 13:30] LABS: Hematocrit 44.4 % (36.0-45.0); Lymphocytes % 30.5 % (15.3-44.8); MCV 96.6 fL (80-100); MPV 9.4 fL (7.6-11.3)
[2022-09-25 13:54] LABS: Albumin 3.7 g/dL (3.4-5.0); Bilirubin Total 0.4 mg/dL (0.2-1.0); Potassium 4.4 mmol/L (3.5-5.1); Protein, Total 7.5 g/dL (6.4-8.2)
[2022-09-25] MEDS ORDERED: ONDANSETRON 4 MG/2 ML VIAL ONE (13:54)
[2022-09-25] MEDS ORDERED: KETOROLAC 30 MG/ML INJ ONE (13:54)
[2022-09-25] MEDS ORDERED: NA CHLORIDE 0.9% 1,000 ML ONE (13:55)
--- NOTE | 2022-09-25 14:38 | RAD REPORT ---
EXAM DESCRIPTION: CTAbdomen Pelvis W Contrast - 09/25/2022 2:32 pm CLINICAL HISTORY: Abdominal pain. ABD PAIN COMPARISON: No comparisons TECHNIQUE: Biphasic CT imaging of the abdomen and pelvis was performed with 100 ml non-ionic IV cont rast. All CT scans are performed using dose optimization technique as appropriate and may include automated exposure control or mA/KV adjustment according to patient size. FINDINGS: The lung bases are clear. The liver, spleen, pancreas, adrenal glands and kidneys are within normal limits. No bowel obstruction, free air, free fluid or abscess. The appendix is normal. No evidence of signi ficant lymphadenopathy. No suspicious bony findings. IMPRESSION: No acute intra-abdominal or pelvic finding.
--- NOTE | 2022-09-25 15:29 | RAD REPORT ---
EXAM DESCRIPTION: US - Transvaginal Study Probe - 09/25/2022 3:16 pm CLINICAL HISTORY: ABD PAIN Pelvic pain. COMPARISON: Chest Abdomen Pelvis W Cont dated 07/01/2022; Chest Abdomen Pelvis W Cont dated 03/29/2022; Chest Abdomen Pelvis W Cont dated 12/04/2021Transvaginal Study Probe dated 02/21/2021 FINDINGS: The uterus is normal in size, shape and echotexture. The uterus measures 7.6 x 5.3 x 3.9 c m The endometrial stripe measures 1 mm, normal. Both ovaries are normal in size, shape and echotexture. The right ovary measures 4.2 x 2.6 cm. The left ovary measures 2.8 x 1.4 cm. No ovarian or parovarian lesions. No adnexal masses. Normal Doppler blood flow was demonstrated to both ovaries. No significant pelvic ascites. IMPRESSION: No acute process identified.
--- NOTE | 2022-09-25 15:32 | EDPHYS ---
Physician Documentation [facility] Name: Fatuma Fallon Age: 32 yrs Sex: Female : 1990 Arrival Date: 09/25/2022 Time: 11:35 Bed 9 Private MD: NELIDA Physician Ant Meng HPI: 09/25 15:49 This 32 yrs old Female presents to ER via Ambulatory with complaints of Abdominal Pain, kb Nausea. 15:49 The patient presents with abdominal pain in the lower abdomen. Onset: The kb symptoms/episode began/occurred yesterday. The symptoms do not radiate. Associated signs and symptoms: Pertinent positives: nausea, Pertinent negatives: diarrhea, fever, vomiting. The symptoms are described as constant. Modifying factors: The symptoms are alleviated by nothing, the symptoms are aggravated by pressure. Severity of pain: At its worst the pain was moderate in the emergency department the pain is unchanged. The patient has not experienced similar symptoms in the past. The patient has not recently seen a physician. Historical: - Allergies: 12:15 No Known Allergies; ss - PMHx: 12:15 Anxiety; Bipolar disorder; mitral valve prolapse; PTSD; ss - PSHx: 12:15 None; ss - Immunization history:: Client reports having NOT received the Covid vaccine. - Social history:: Smoking status: Patient reports the use of cigarette tobacco products, smokes one-half pack cigarettes per day. ROS: 15:49 Constitutional: Negative for fever, chills, and weight loss. kb 15:49 Abdomen/GI: Positive for abdominal pain, nausea, Negative for vomiting, diarrhea. 15:49 All other systems are negative. Exam: 15:49 Constitutional: This is a well developed, well nourished patient who is awake, alert, kb and in no acute distress. Head/Face: Normocephalic, atraumatic. ENT: Moist Mucous membranes Cardiovascular: Regular rate and rhythm with a normal S1 and S2. No gallops, murmurs, or rubs. No pulse deficits. Respiratory: Respirations even and unlabored. No increased work of breathing. Talking in full sentences Skin: Warm, dry with normal turgor. Normal color. MS/ Extremity: Pulses equal, no cyanosis. Neurovascular intact. Full, normal range of motion. Neuro: Awake and alert, GCS 15, oriented to person, place, time, and situation. Moves all extremities. Normal gait. 15:49 Abdomen/GI: Inspection: abdomen appears normal, Bowel sounds: normal, in all quadrants, Palpation: soft, in all quadrants, mild abdominal tenderness, in the right lower quadrant, moderate abdominal tenderness, in the suprapubic area and left lower quadrant. Vital Signs: 12:14 BP 117 / 82; Pulse 87; Resp 14; Temp 98.8(TE); Pulse Ox 100% on R/A; Weight 87.54 kg; ss Height 5 ft. 4 in. (162.56 cm); Pain 8/10; 12:16 BP 117 / 82; ss 12:14 Body Mass Index 33.13 (87.54 kg, 162.56 cm) ss MDM: 11:41 Patient medically screened. kb 15:47 Differential diagnosis: appendicitis, diverticulitis, non-specific abd pain, Ovarian kb Torsion, urinary tract infection, Ovarian cyst. Data reviewed: vital signs, nurses notes. I considered the following discharge prescriptions or medication management in the emergency department I discussed and recommended Over The Counter medications. Counseling: I had a detailed discussion with the patient and/or guardian regarding: the historical points, exam findings, and any diagnostic results supporting the discharge/admit diagnosis, lab results, radiology results, the need for outpatient follow up, a family practitioner, to return to the emergency department if symptoms worsen or persist or if there are any questions or concerns that arise at home. 15:47 ED course: Patient is a 32-year-old female who presents with lower abdominal pain and kb nausea that started yesterday. Denies fever, vomiting, diarrhea, urinary symptoms, vaginal bleeding or discharge. On exam patient has moderate tenderness to suprapubic area and left lower quadrant, mild tenderness to right lower quadrant. CT, serum labs, urinalysis and ultrasound done and reviewed. Patient educated on diagnostic results and given printed copy. Educated to follow-up with PCP and possibly pharmaceutical sales versus spring assembler. Educated on use of heating pad and prescribed medications for symptoms. Verbal understanding received.. 09/25 11:47 Order name: CBC with Diff; Complete Time: 13:57 kb 09/25 11:47 Order name: CMP; Complete Time: 14:05 kb 09/25 11:47 Order name: Lipase; Complete Time: 14:05 kb 09/25 11:47 Order name: CT Abd/Pelvis - IV Contrast Only; Complete Time: 14:39 kb 09/25 11:47 Order name: IV Saline Lock; Complete Time: 13:14 kb 09/25 11:47 Order name: Labs collected and sent; Complete Time: 13:14 kb 09/25 11:47 Order name: Urine Dipstick-Ancillary (obtain specimen); Complete Time: 13:14 kb 09/25 12:45 Order name: Urine Dipstick-Ancillary; Complete Time: 12:45 EDMS 09/25 12:51 Order name: Urine --Ancillary (enter results); Complete Time: 13:03 bd 09/25 14:46 Order name: US Transvaginal Study (Probe); Complete Time: 15:31 kb Administered Medications: 13:50 Drug: NS 0.9% 1000 ml Route: IV; Rate: 1 bolus; Site: right antecubital; [facility] 13:50 Drug: TORadol - (ketorolac) 15 mg Route: IVP; Site: right antecubital; [facility] 13:50 Drug: Zofran (Ondansetron) 4 mg Route: IVP; Site: right antecubital; [facility] Disposition Summary: 09/25/22 15:32 Discharge Ordered Location: Home kb Condition: Stable kb Diagnosis - Lower abdominal pain, unspecified kb Followup: kb - With: Emergency Department - When: As needed - Reason: Worsening of condition Followup: kb - With: Private Physician - When: 2 - 3 days - Reason: Recheck today's complaints, Continuance of care, Re-evaluation by your physician Discharge Instructions: - Discharge Summary Sheet kb - Pelvic Pain, Female, [id number] kb - Abdominal Pain, Adult, [id number] kb Forms: - Medication Reconciliation Form kb - Thank You Letter kb - Antibiotic Education kb - Prescription Opioid Use kb Prescriptions: - Zofran 4 mg Oral Tablet - take 1 tablet by ORAL route every 8 hours As needed; 20 tablet; Refills: 0, kb Product Selection Permitted - Diclofenac Sodium 75 mg Oral tablet,delayed release (DR/EC) - take 1 tablet by ORAL route 2 times per day As needed; 30 tablet; Refills: 0, kb Product Selection Permitted Signatures: Dispatcher [employer] EDSarah Liu, JAY-C JAY-Velma Monroe RN RN ss Edelmira Ahumada, RN RN [id number]
--- NOTE | 2022-09-25 15:32 | ER ---
Nurse's Notes [facility] Name: Fatuma Fallon Age: 32 yrs Sex: Female : 1990 Arrival Date: 09/25/2022 Time: 11:35 Bed 9 Private MD: Diagnosis: Lower abdominal pain, unspecified Presentation: 09/25 12:14 Chief complaint: Patient states: lower abd pain that began yesterday. + nausea. ss Coronavirus screen: Client denies travel out of the [place] in the last 14 days. Ebola Screen: Patient denies exposure to infectious person. Patient denies travel to an Ebola-affected area in the 21 days before illness onset. Initial Sepsis Screen: Does the patient meet any 2 criteria? No. Patient's initial sepsis screen is negative. Does the patient have a suspected source of infection? No. Patient's initial sepsis screen is negative. Risk Assessment: Do you want to hurt yourself or someone else? Patient reports no desire to harm self or others. Onset of symptoms was September 24, 2022. 12:14 Method Of Arrival: Ambulatory ss 12:14 Acuity: LANA 3 ss Historical: - Allergies: 12:15 No Known Allergies; ss - PMHx: 12:15 Anxiety; Bipolar disorder; mitral valve prolapse; PTSD; ss - PSHx: 12:15 None; ss - Immunization history:: Client reports having NOT received the Covid vaccine. - Social history:: Smoking status: Patient reports the use of cigarette tobacco products, smokes one-half pack cigarettes per day. Vital Signs: 12:14 BP 117 / 82; Pulse 87; Resp 14; Temp 98.8(TE); Pulse Ox 100% on R/A; Weight 87.54 kg; ss Height 5 ft. 4 in. (162.56 cm); Pain 8/10; 12:16 BP 117 / 82; ss 12:14 Body Mass Index 33.13 (87.54 kg, 162.56 cm) ED Course: 11:35 Patient arrived in ED. rg4 11:36 Sarah [facility]astelum [facility]-C [facility] kb 11:36 Ant Meng MD is Attending Physician. kb 12:15 Triage completed. ss 12:15 Arm band placed on right wrist. ss 14:34 CT Abd/Pelvis - IV Contrast Only In Process Unspecified. EDMS 15:18 US Transvaginal Study (Probe) In Process Unspecified. EDMS Administered Medications: 13:50 Drug: NS 0.9% 1000 ml Route: IV; Rate: 1 bolus; Site: right antecubital; 5 13:50 Drug: TORadol - (ketorolac) 15 mg Route: IVP; Site: right antecubital; [facility] 13:50 Drug: Zofran (Ondansetron) 4 mg Route: IVP; Site: right antecubital; [facility] Outcome: 15:32 Discharge ordered by MD. miranda 15:53 Discharged to home ambulatory. [facility] 15:53 Condition: good 15:53 Discharge instructions given to patient. 15:54 Patient left the ED. [facility] Signatures: Dispatcher [employer] EDMS Sarah Gastelum, MACHINE TOOL TECHNOLOGY INSTRUCTOR-C JYA-Velma Monroe, RN Supriya Lopez rg4 Edelmira Ahumaad RN RN 5
[2022-09-25 16:03] VITALS: BP 117/82; TEMP 98.8; O2SAT 100
== END 2022-09-25 15:54 | disposition home or self-care (01) ==
LOC: ER 11:32
DX: R10.30 Lower abdominal pain, unspecified (principal); R11.0 Nausea; F17.210 Nicotine dependence, cigarettes, uncomplicated
CPT/HCPCS: 85025; 36415; 81025; 81003; 83690; 80053; 74177; 76830; Q9967; J7030; J2405

== ENCOUNTER 2023-09-05 23:25 | Emergency (ER) | payer BC ==
--- OUTSIDE RECORDS SUMMARY | 2023-09-05 23:29 | XMS REPORT | Continuity of Care Document ---
Author Name Unknown Address [address] [facility] [address] [place] [address] [facility] thconnect Address [address] [facility] [place] [address] Care Team Providers Care Cosmetic Chemist Name Role Phone Nam Gillespie Jr. Primary Care Physician + [phone] EPI MONZON Attending Clinician Unavailable Celeste Woodall PA-C Attending Clinician [phone] CELESTE WOODALL Attending Clinician Unavailable Doctor Unassigned, [place] Attending Clinician U Epi Velez MD Attending Clinician [phone] LENCHO MELTON Attending Clinician Unavailable Provider, [facility] Attending Clinician Un available RUPERTO RAMSEY Attending Clinician Unavailable Payers Payer Name Policy Type Policy Number Effective Date Expirati on Date Source BCBS 2 [id number] 2022 00:00:00 Problems Condition Name Condition Details Condition Category Status Onset Date Resolution Date Last Treatment Date Treating Clinician Comments Source Acute pharyngiti s Acute pharyngiti s Disease Active 2021-07 0-06 00:00: 00 Marlene Medina - Externa l Obesity (BMI 30-39.9) Obesity (BMI 30-39.9) Disease Active 03-14 00:00: 00 [facility] Allergies, Adverse Reactions, Alerts Allergy Name Allergy Type Status Severity Reaction(s) Onset Date Inactive Date Treating Clinician Comments Source NO KNOWN ALLERGIE S Drug Class Active [facility] Social History Social Habit Start Date Stop Date Quantity Comments Source [facility] SDOH Alcohol Comment [place] [facility] History of tobacco use Cigarette Smoker Marlene hunter - External Alcohol intake 2023-05-05 00:00:00 2023-05-05 00:00:00 Current drinker of alcohol (finding) [facility] Exposure to SARS-CoV-2 (event) 2022-03-18 00:00:00 2022-03-28 12:52:[address] [facility] History of Social function 2020-08-02 00:00:00 2020-08-02 00:00:00 [facility] Cigarettes smoked current (pack per day) - Reported 2020-08-02 00:00:00 2020-08-02 00:00:00 [facility] Tobacco use and exposure 2020-08-02 00:00:00 2020-08-02 00:00:00 Smokeless tobacco non-user [facility] History SDOH Alcohol Frequency 2020-08-02 00:00:00 2020-08-02 00:00:[address] [facility] History SDOH Alcohol Std Drinks 2020-08-02 00:00:00 2020-08-02 00:00:[address] [facility] History SDOH Alcohol Binge 2020-08-02 00:00:00 2020-08-02 00:00:[address] [facility] Sex Assigned At 1990 00:00:00 1990 00:00:00 Marlene Medina - External Smoking Status Start Date Stop Date Source Smokes tobacco daily 2020-08-02 00:00:00 [facility] Medications Ordered Medication Name Filled Medication Name Start Date Stop Date Current Medication? Ordering Clinician Indication Dosage Frequency Signature (SIG) Comments Components Source kenneth melaraestrad ioL-iron (LO LOESTRIN FE) 1 mg-10 mcg (24)/10 mcg (2) per tablet 2022-07 00:00: 00 Yes [id number] 1{tbl} Take 1 tablet by mouth in the morning. [facility] metroNIDAZO LE 500 mg tablet 2022-07 00:00: 00 Yes [id number] 500mg Take 1 tablet by mouth every 12 (twelve) hours. [facility] metroNIDAZO LE 500 mg tablet 2022-07 00:00: 00 Yes [id number] 500mg Take 1 tablet by mouth every 12 (twelve) hours. [facility] fluconazole 150 mg tablet 2022-07 00:00: 00 05-06 04:59 :00 No [id number] 150mg Take 1 tablet by mouth once now for 1 dose. [facility] fluconazole 150 mg tablet 2022-07 00:00: 00 05-06 04:59 :00 No [id number] 150mg Take 1 tablet by mouth once now for 1 dose. [facility] metoprolol succinate XL 100 mg 24 hr tablet 04-23 00:00: 00 Yes [facility] metoprolol succinate XL 100 mg 24 hr tablet 04-23 00:00: 00 Yes [facility] metoprolol succinate XL 100 mg 24 hr tablet 04-23 00:00: 00 Yes [facility] metoprolol succinate XL 100 mg 24 hr tablet 04-23 00:00: 00 Yes [facility] metoprolol succinate XL 100 mg 24 hr tablet 04-23 00:00: 00 Yes [facility] DULoxetine 60 mg capsule 04-08 00:00: 00 Yes [facility] DULoxetine 60 mg capsule 04-08 00:00: 00 Yes [facility] DULoxetine 60 mg capsule 04-08 00:00: 00 Yes [facility] DULoxetine 60 mg capsule 0 04-08 00:00: 00 Yes [facility] DULoxetine 60 mg capsule 0 04-08 00:00: 00 Yes [facility] zolpidem 12.5 mg CR tablet 0 03-05 00:00: 00 Yes [facility] zolpidem 12.5 mg CR tablet 0 03-05 00:00: 00 Yes [facility] zolpidem 12.5 mg CR tablet 0 03-05 00:00: 00 Yes [facility] zolpidem 12.5 mg CR tablet 0 03-05 00:00: 00 Yes [facility] zolpidem 12.5 mg CR tablet 0 03-05 00:00: 00 Yes [facility] ondansetron 4 mg disintegrat ing tablet 2022-0 02-21 00:00: 00 Yes [facility] ondansetron 4 mg disintegrat ing tablet 0 02-21 00:00: 00 Yes [facility] ondansetron 4 mg disintegrat ing tablet 0 02-21 00:00: 00 Yes [facility] ondansetron 4 mg disintegrat ing tablet 0 02-21 00:00: 00 Yes [facility] ondansetron 4 mg disintegrat ing tablet 0 02-21 00:00: 00 Yes [facility] LORazepam 1 mg tablet 0 02-04 00:00: 00 Yes [facility] LORazepam 1 mg tablet 0 02-04 00:00: 00 Yes [facility] LORazepam 1 mg tablet 0 02-04 00:00: 00 Yes [facility] LORazepam 1 mg tablet 0 02-04 00:00: 00 Yes [facility] LORazepam 1 mg tablet 0 02-04 00:00: 00 Yes [facility] Benzonatate (Tessalon Perles) 100 MG oral Capsule 2021-07 0-06 00:00: 00 Yes [id number] 100mg [id number] 3D Take 1 capsule (100 mg total) by mouth 3 times daily as needed for cough Marlene osorio Azithromyci n 250 MG oral Tablet 2021-07 0-06 00:00: 00 05-08 04:59 :00 No [id number] Take 2 tablets by mouth on day 1 then 1 tablet by mouth daily for 4 days thereafter . Marlene osorio norethindro ne-e.estrad ioL-iron (LO LOESTRIN FE) 1 mg-10 mcg (24)/10 mcg (2) per tablet 03-14 00:00: 00 Yes [id number] 1{tbl} Take 1 tablet by mouth in the morning. [facility] norethindro ne-e.estrad ioL-iron (LO LOESTRIN FE) 1 mg-10 mcg (24)/10 mcg (2) per tablet 03-14 00:00: 00 Yes [id number] 1{tbl} Take 1 tablet by mouth in the morning. [facility] norethindro ne-e.estrad ioL-iron (LO LOESTRIN FE) 1 mg-10 mcg (24)/10 mcg (2) per tablet 03-14 00:00: 00 Yes [id number] 1{tbl} Take 1 tablet by mouth in the morning. [facility] norethindro ne-e.estrad ioL-iron (LO LOESTRIN FE) 1 mg-10 mcg (24)/10 mcg (2) per tablet 03-14 00:00: 00 Yes [id number] 1{tbl} Take 1 tablet by mouth in the morning. [facility] norethindro ne-e.estrad ioL-iron (LO LOESTRIN FE) 1 mg-10 mcg (24)/10 mcg (2) per tablet 03-14 00:00: 00 Yes [id number] 1{tbl} Take 1 tablet by mouth in the morning. [facility] norethindro ne-e.estrad ioL-iron (LO LOESTRIN FE) 1 mg-10 mcg (24)/10 mcg (2) per tablet 18 00:00: 00 Yes [id number] 1{tbl} Take 1 tablet by mouth in the morning. [facility] norethindro ne-e.estrad ioL-iron (LO LOESTRIN FE) 1 mg-10 mcg (24)/10 mcg (2) per tablet 03-14 00:00: 00 Yes [id number] 1{tbl} Take 1 tablet by mouth in the morning. [facility] norethindro ne-e.estrad ioL-iron (LO LOESTRIN FE) 1 mg-10 mcg (24)/10 mcg (2) per tablet 03-14 00:00: 00 Yes [id number] 1{tbl} Take 1 tablet by mouth in the morning. [facility] norethind ne-e.estrad ioL-iron (LO LOESTRIN FE) 1 mg-10 mcg (24)/10 mcg (2) per tablet 03-14 00:00: 00 05-07 00:00 :00 No [id number] 1{tbl} Take 1 tablet by mouth in the morning. [facility] benzonatate (TESSALON PERLES) 100 mg capsule 08-02 00:00: 00 Yes [id number] 100mg Take 1 capsule by mouth 3 (three) times daily. [facility] azelastine 137 mcg (0.1 %) nasal spray 08-02 00:00: 00 Yes [id number] 1{spray } Use 1 Mark in each nostril 2 (two) times daily. Use in each nostril as directed [facility] benzonatate (TESSALON PERLES) 100 mg capsule 08-02 00:00: 00 Yes [id number] 100mg Take 1 capsule by mouth 3 (three) times daily. [facility] azelastine 137 mcg (0.1 %) nasal spray 08-02 00:00: 00 Yes [id number] 1{spray } Use 1 Mark in each nostril 2 (two) times daily. Use in each nostril as directed [facility] benzonatate (TESSALON PERLES) 100 mg capsule 08-02 00:00: 00 Yes [id number] 100mg Take 1 capsule by mouth 3 (three) times daily. [facility] azelastine 137 mcg (0.1 %) nasal spray 08-02 00:00: 00 Yes [id number] 1{spray } Use 1 Mark in each nostril 2 (two) times daily. Use in each nostril as directed [facility] benzonatate (TESSALON PERLES) 100 mg capsule 08-02 00:00: 00 04-28 00:00 :00 No [id number] 100mg Take 1 capsule by mouth 3 (three) times daily. [facility] azelastine 137 mcg (0.1 %) nasal spray 08-02 00:00: 00 04-28 00:00 :00 No [id number] 1{spray } Use 1 Mark in each nostril 2 (two) times daily. Use in each nostril as directed [facility] benzonatate (TESSALON PERLES) 100 mg capsule 08-02 00:00: 00 04-28 00:00 :00 No [id number] 100mg Take 1 capsule by mouth 3 (three) times daily. [facility] azelastine 137 mcg (0.1 %) nasal spray 08-02 00:00: 00 04-28 00:00 :00 No [id number] 1{spray } Use 1 Mark in each nostril 2 (two) times daily. Use in each nostril as directed [facility] Vital Signs Vital Name Observation Time Observation Value Comments S cristiane Systolic blood pressure 2023-05-05 19:34:00 126 mm[Hg] [facility] Diastolic blood pressure 2023-05-05 19:34:00 82 mm[Hg] [facility] Heart rate 2023-05-05 19:34:00 71 /min [facility] Body temperature 2023-05-05 19:34:[address] [facility] Respiratory rate 2023-05-05 19:34:00 18 /min [facility] Body height 2023-05-05 19:34:00 162.6 cm [facility] Body weight 2023-05-05 19:34:00 87.091 kg [facility] BMI 2023-05-05 19:34:00 32.96 kg/m2 [facility] Heart rate 2022-05-02 20:07:00 100 /min Marcelle y Seybold - External Body temperature 2022-05-02 20:07:00 36.89 Aline Marlene Seybold - External Respiratory rate 2022-05-02 20:07:00 14 /min Marlene Rosasybold - External Body height 2022-05-02 20:07:00 162.6 cm Paula ey Seybold - External Body weight 2022-05-02 20:07:00 87.091 kg Paula ey Seybold - External BMI 2022-05-02 20:07:00 32.96 kg/m2 Paula ey Seybold - External Systolic blood pressure 2022-05-02 20:07:00 114 mm[Hg] Marlene Seybo ld - External Diastolic blood pressure 2022-05-02 20:07:00 64 mm[Hg] Marlene Seybo ld - External Systolic blood pressure 2022-03-28 18:17:00 109 mm[Hg] [facility] Diastolic blood pressure 2022-03-28 18:17:00 72 mm[Hg] [facility] Heart rate 2022-03-28 18:17:00 63 /min [facility] Body temperature 2022-03-28 18:17:[address] [facility] Respiratory rate 2022-03-28 18:17:00 18 /min [facility] Body height 2022-03-28 18:17:00 165.1 cm [facility] Body weight 2022-03-28 18:17:00 85.458 kg [facility] BMI 2022-03-28 18:17:00 31.35 kg/m2 [facility] Procedures Procedure Date / Time Performed Performing Clinician Source ASSIGNMENT OF BENEFITS 2023-05-05 19:13:06 Docto r Unassigned, [place] [facility] POCT TEST 2023-05-05 00:00:[address] [facility] POCT URINALYSIS W/O SPECIFIC GRAVITY 2023-05-05 00:00:[address] [facility] US PELVIS COMPLETE WITH TRANSVAGINAL 2022-03-28 21:11:[address] [facility] Encounters Start Date/Time End Date/Time Encounter Type Admission Type Attending Clinicians Care Facility Care Department Encounter ID Source 2023-05-07 00:00:00 2023-05-07 00:00:00 Case Management Celeste Woodall [facility] 1..840.114 350.1.13.10 4.2.7.2.686 [id number] [facility] 2023-05-07 00:00:00 2023-05-07 00:00:00 Refill Celeste Woodall [facility] 1.840.114 350.1.13.10 4.2.7.2.686 [id number] [facility] 2023-05-05 14:30:00 2023-05-05 15:09:25 Outpatient R JOSE C CELESTE [facility] [id number] [facility] 2023-05-05 14:30:00 2023-05-05 15:09:25 Office Visit Celeste Woodall [facility] 1.840.114 350.1.13.10 4.2.7.2.686 [id number] [facility] 2023-05-05 00:00:00 2023-05-05 00:00:00 Orders Only Doctor Unassigned, [place] [facility] 1.840.114 350.1.13.10 4.2.7.2.686 [id number] [facility] 2023-04-25 00:00:00 2023-04-25 00:00:00 Refill Epi [facility] 1.2.840.114 350.1.13.10 4.2.7.2.686 [id number] [facility] 2022-05-30 14:15:00 2022-05-30 14:15:00 Outpatient LENCHO MELTON MARLENE MCGARRY [id number] [facility] 2022-05-07 15:00:00 2022-05-07 15:00:00 Outpatient R [facility] [id number] [facility] 2022-05-02 15:15:00 2022-05-02 15:15:00 Outpatient GERONIMORMLENCHO MARLENE MCGARRY [id number] [facility] 2022-03-28 15:09:33 2022-03-28 23:59:00 Outpatient R JOSE C [facility] [id number] [facility] 2022-03-28 15:09:33 2022-03-28 23:59:00 Hospital Encounter Jose C Celeste [facility] 1..840.114 350.1.13.10 4.2.7.2.686 [id number] [facility] 2022-03-28 13:30:00 2022-03-28 13:56:28 Outpatient R EPI MONZON [facility] [id number] [facility] 2022-03-28 13:30:00 2022-03-28 13:56:28 Office Visit Epi Monzon [facility] 1.2.840.114 350.1.13.10 4.2.7.2.686 [id number] [facility] 2022-03-28 13:00:00 2022-03-28 13:00:00 Outpatient R EPI MONZON [facility] [id number] [facility] 2022 14:15:00 2022 15:12:40 Office Visit IrenemansoorCeleste [facility] 1.2.840.114 350.1.13.10 4.2.7.2.686 [id number] [facility] 2022 14:15:00 2022 15:12:40 Outpatient R JOSE C [facility] [id number] [facility] 2022 14:15:00 2022 15:12:40 Outpatient R JOSE C [facility] [id number] [facility] 2022 14:15:00 2022 15:12:40 Outpatient R JOSE C [facility] [id number] [facility] 2022 00:00:00 2022 00:00:00 Orders Only Doctor Unassigned, [place] [facility] 1..840.114 350.1.13.10 4.2.7.2.686 [id number] [facility] 2020-08-02 10:19:40 2020-08-02 11:11:19 Urgent Care Provider, [facility] Office [facility] 1..840.114 350.1.13.10 4.2.7.2.686 [id number] 2020-08-02 10:20:00 2020-08-02 10:20:00 Outpatient RUPERTO SELLERS [facility] [id number] [facility] 2020-08-02 08:35:00 2020-08-02 08:35:00 Outpatient RUPERTO SELLERS [facility] [id number] [facility] 2020-08-02 00:00:00 2020-08-02 00:00:00 Letter (Out) Doctor Unassigned, [place] [facility] 1.2.840.114 350.1.13.10 4.2.7.2.686 [id number] [facility] [id number] Results Test Description Test Time Test Comments Results Result Co mments Source [id number] 19:54:00* Test Item Value Reference Range Interpretation Comme nts POCT PREG (test code = 1605) Negative On board controls acceptable with C Line (test code = 3574) Yes POCT PREG LOT # (test code = 3575) POCT PREG TEST DATE ( test code = 3576) [facility] URINALYSIS W/O SPECIFIC [id number] 19:53:00* Test Item Value Reference Range Interpretation Comme nts POCT PH U (test code = 3254) 6 mg/dl 5-8 POCT U LEUK EST (test code = 3263) neg Negative - Negative POCT U NIT (test code = 3262) neg Negative - Negati ve POCT U PROT (test code = 3259) neg Negative - Negat matilda POCT U GLU (test code = 3256) neg Negative - Negati ve POCT U KETONE (test code = 3258) neg Negative - Neg ative POCT U BLD (test code = 3257) neg Negative - Negati ve [facility] W/O SPECIFIC [id number] 19:53:00* Test Item Value Reference Range Interpretation Comme nts POCT PH U (test code = 3254) 6 mg/dl 5-8 POCT U LEUK EST (test code = 3263) neg Negative - Negative POCT U NIT (test code = 3262) neg Negative - Negati ve POCT U PROT (test code = 3259) neg Negative - Negat matilda POCT U GLU (test code = 3256) neg Negative - Negati ve POCT U KETONE (test code = 3258) neg Negative - Neg ative POCT U BLD (test code = 3257) neg Negative - Negati ve [facility]
[2023-09-06] MEDS ORDERED: IPRATROPIUM BROM 0.5MG/2.5ML ONE (01:13)
[2023-09-06] MEDS ORDERED: dexAMETHasone 10 MG/ML VIAL ONE (01:13)
[2023-09-06] MEDS ORDERED: HYDROCODONE/CHLORPHEN 5 ML/OSYR ONE (01:13)
[2023-09-06] MEDS ORDERED: ALBUTEROL 2.5 MG/3 ML NEB SOL ONE (01:13)
[2023-09-06 01:14] LABS: Absolute Lymphocytes (CBC) 4.1 K/uL (0.7-4.9); Hematocrit 38.4 % (36.0-45.0); MCV 96.7 fL (80-100); MPV 8.6 fL (7.6-11.3); Platelets 246 thou/uL (152-406); RBC Red Blood Cell Count 3.97 M/uL (3.86-4.86)
[2023-09-06] MEDS ORDERED: dexAMETHasone 4 MG/ML VIAL ONE (01:19)
[2023-09-06 01:35] LABS: SARS-CoV-2 Antigen Rapid Res Negative (Negative)
[2023-09-06 01:43] LABS: ALT/SGPT 21 U/L (13-56); AST/SGOT 8 U/L (15-37); Alkaline Phosphatase 64 U/L (45-117); BUN Blood Urea Nitrogen 10 mg/dL (7-18); Bicarbonate 23 mEq/L (21-32); Bilirubin Total 0.2 mg/dL (0.2-1.0); Glomerular Filtration Rate 81 ml/min (=/>90); Glucose Level 85 mg/dL (74-106); Magnesium 2.1 mg/dL (1.6-2.4); Potassium 3.7 mEq/L (3.5-5.1); Protein, Total 6.3 g/dL (6.4-8.2); Sodium Level 139 mEq/L (136-145); Troponin High Sensitivity 3.2 pg/mL (<58.9)
[2023-09-06 01:44] LABS: NT PRO-BNP 80 pg/mL (<125)
[2023-09-06 01:48] LABS: Bilirubin Direct < 0.1 mg/dL (0-0.2); Bilirubin Indirect, Calculated ND mg/dL (0.2-0.8)
--- NOTE | 2023-09-06 02:01 | EDPHYS ---
Physician Documentation [facility] Name: Fatuma Fallon Age: 33 yrs Sex: Female : 1990 Arrival Date: 09/05/2023 Time: 23:25 Bed 4 Private MD: ED Physician Isaiah Le HPI: 09/06 00:10 This 33 yrs old Female presents to ER via Ambulatory with complaints of Shortness Of cp Breath, Chest Pressure, Chest Pain. 00:10 The patient has shortness of breath at rest. Onset: The symptoms/episode began/occurred cp gradually. The patient's shortness of breath is aggravated by light activity. Associated signs and symptoms: Pertinent positives: chest pain, non-productive cough, started 5 days ago, Pertinent negatives: productive cough, fever, hemoptysis. Severity of symptoms: in the emergency department the symptoms are unchanged despite home interventions. Historical: - PMHx: 00:19 Anxiety; Bipolar disorder; mitral valve prolapse; PTSD; kd3 - Immunization history:: Adult Immunizations up to date. - Social history:: Smoking status: Reported history of juuling and/or vaping. ROS: 00:15 Constitutional: Negative for fever, poor PO intake, cp 00:15 ENT: Positive for sore throat, cp 00:15 Cardiovascular: Positive for chest pain, with cough, 00:15 Respiratory: Positive for cough, with no reported sputum, shortness of breath, 00:15 Eyes: Negative for injury, pain, redness, and discharge, cp 00:15 Abdomen/GI: Negative for vomiting, diarrhea, constipation, 00:15 Neuro: Negative for altered mental status, weakness, 00:15 All other systems are negative, cp Exam: 09/05 23:56 ECG was reviewed by the Attending Physician. cp 09/06 00:20 Constitutional: The patient appears in no acute distress, alert, awake, cp non-diaphoretic, non-toxic, well developed, well nourished, uncomfortable, 00:20 Head/Face: Normocephalic, atraumatic. cp 00:20 Eyes: Periorbital structures: appear normal, Conjunctiva: normal, no exudate, no injection, Sclera: no appreciated abnormality, Lids and lashes: appear normal, bilaterally, 00:20 ENT: External ear(s): are unremarkable, Ear canal(s): are normal, clear, TM's: dullness, bilaterally, Nose: is normal, Mouth: Lips: moist, Oral mucosa: moist, Posterior pharynx: Airway: no evidence of obstruction, patent, swelling, is not appreciated, erythema, that is mild, exudate, is not appreciated, 00:20 Chest/axilla: Inspection: normal, 00:20 Cardiovascular: Rate: normal, Rhythm: regular, 00:20 Respiratory: the patient does not display signs of respiratory distress, Respirations: shallow respirations, that is mild, Breath sounds: bronchial sounds, that are mild, are heard diffusely, decreased breath sounds, are not appreciated, stridor, is not appreciated, wheezing: is not appreciated, 00:20 Abdomen/GI: Exam negative for discomfort, distension, guarding, Inspection: abdomen appears normal, 00:20 Back: CVA tenderness, is absent, cp 00:20 Skin: no rash present. cp 00:20 Neuro: Orientation: to person, place \T\ time. Mentation: is normal, Motor: moves all fours, strength is normal, Sensation: is normal, Vital Signs: 09/05 23:47 BP 115 / 88; Pulse 69; Resp 20; Pulse Ox 99% on R/A; as9 0210 00:17 BP 115 / 86; Pulse 71; Resp 16; Temp 98.5; Pulse Ox 99% on R/A; Weight 90.72 kg; Height kd3 5 ft. 5 in. ; 01:18 BP 116 / 81; Pulse 62; Resp 19; Pulse Ox 99% on R/A; as9 01:46 BP 118 / 83; Pulse 63; Resp 20; Temp 97.3; Pulse Ox 100% on R/A; as9 02:20 BP 125 / 79; Pulse 78; Resp 18; Temp 98; Pulse Ox 100% on R/A; as9 00:17 Body Mass Index 33.28 (90.72 kg, 165.1 cm) kd3 [place] Coma Score: 02:20 Eye Response: spontaneous(4). Motor Response: obeys commands(6). Verbal Response: as9 oriented(5). Total: 15. MDM: 00:08 Patient medically screened. cp 02:00 Data reviewed: vital signs, nurses notes, lab test result(s), EKG, radiologic studies, cp plain films. 02:00 Differential diagnosis: Bronchitis pneumonia, Pneumothorax pulmonary edema, Pulmonary cp Embolism Sepsis. Antibiotic administration: The patient is discharged and will get outpatient antibiotics, Zithromax. I considered the following discharge prescriptions or medication management in the emergency department Medications were administered in the Emergency Department. See MAR. Counseling: I had a detailed discussion with the patient and/or guardian regarding the historical points, exam findings, and any diagnostic results supporting the discharge/admit diagnosis, lab results, radiology results, the need for outpatient follow up, a family practitioner, to return to the emergency department if symptoms worsen or persist or if there are any questions or concerns that arise at home. Response to treatment: the patient's symptoms have markedly improved after treatment, and as a result, I will discharge patient. Special discussion: Based on the patient's history, exam, and Dx evaluation, there is no indication for emergent intervention or inpatient Tx. It is understood by the patient/guardian that if the Sx's persist or worsen they need to return immediately for re-evaluation. 09/06 00:09 Order name: Basic Metabolic Panel; Complete Time: :52 cp 09/06 01:47 Interpretation: Normal except: CL 110; GFR 81. cp 09/06 00:09 Order name: CBC with Diff; Complete Time: 01:32 cp 09/06 01:32 Interpretation: Normal except: WBC 11.30. cp 09/06 00:09 Order name: D-Dimer; Complete Time: 01:47 cp 09/06 01:47 Interpretation: Reviewed. cp 09/06 00:09 Order name: LFT's; Complete Time: :52 cp 09/06 01:47 Interpretation: Normal except: AST 8; TP 6.3; ALB 3.0; A/G 0.9. cp 09/06 00:09 Order name: Magnesium; Complete Time: :52 cp 09/06 00:09 Order name: NT PRO-BNP; Complete Time: :52 cp 09/06 00:09 Order name: Troponin HS; Complete Time: :52 cp 09/06 00:09 Order name: SARS RAPID; Complete Time: 01:47 cp 09/06 00:09 Order name: Influenza Screen (a \T\ B); Complete Time: 01:47 cp 09/06 01:47 Interpretation: Reviewed. cp 09/06 00:09 Order name: Strep cp 09/06 00:09 Order name: Urinalysis W/Microscopic cp 09/06 00:09 Order name: Test, Urine cp 09/06 01:29 Order name: Throat Culture EDMS 09/06 00:09 Order name: XRAY Chest (1 view) cp 09/06 00:09 Order name: EKG; Complete Time: 00:10 cp 09/06 00:09 Order name: Cardiac monitoring; Complete Time: 00:16 cp 09/06 00:09 Order name: EKG - Nurse/Tech; Complete Time: 00:16 cp 09/06 00:09 Order name: IV Saline Lock; Complete Time: 01:43 cp 09/06 00:09 Order name: Labs collected and sent; Complete Time: 01:44 cp 09/06 00:09 Order name: O2 Per Protocol; Complete Time: 00:16 cp 09/06 00:09 Order name: O2 Sat Monitoring; Complete Time: 00:16 cp EC/09 23:56 Rate is 69 beats/min. Rhythm is regular. WI interval is normal. QRS interval is normal. cp QT interval is normal. T waves are Inverted in lead aVR. Interpreted by me. Reviewed by me. Administered Medications: 09/06 01:32 Not Given (Physician Discretion): mg IM once cp 01:41 Drug: Tussionex Pennkinetic ER PO Suspension 5 ml PO once Route: PO; as9 02:20 Follow up: Response: No adverse reaction as9 01:41 Drug: DuoNeb Nebulize (2.5 mg - 0.5 mg) 3 ml Nebulizer once Route: Nebulizer; as9 02:19 Follow up: Response: Wheezing diminished as9 01:41 Drug: Decadron - Dexamethasone IVP 10 mg IVP once Route: IVP; Site: right forearm; as9 02:19 Follow up: Response: No adverse reaction as9 02:19 Not Given (Patient Refused): [id number] mg IVP once as9 Disposition: 03:59 I was immediately available on-site in the Emergency Department for consultation in the ia3 care of the patient. Disposition Summary: 09/06/23 02:01 Discharge Ordered Notes: Location: Home cp Problem: new cp Symptoms: have improved cp Condition: Stable cp Diagnosis - Cough cp - Acute laryngopharyngitis cp Followup: cp - With: Private Physician - When: 2 - 3 days - Reason: Worsening of condition Discharge Instructions: - Discharge Summary Sheet cp - Pharyngitis cp - Sore Throat cp - Cool Mist Vaporizer cp - Cough, Adult cp Forms: - Medication Reconciliation Form cp - Thank You Letter cp - Antibiotic Education cp - Prescription Opioid Use cp - Patient Portal Instructions cp - Leadership Thank You Letter cp Prescriptions: - Bromfed DM 2-30-10 mg/5 mL Oral syrup - administer 10 milliliter ORAL route every 6 hours as needed for cough; 240 cp milliliter; Refills: 0, Product Selection Permitted - albuterol sulfate 90 mcg/actuation Inhalation HFA Aerosol Inhaler - inhale 1 puff INHALATION route every 4 to 6 hours as needed for bronchospasm; cp administer via ventilator; 1 unit; Refills: 0, Product Selection Permitted - Diclofenac Sodium 75 mg Oral tablet, delayed release (enteric coated) - take 1 tablet ORAL route 2 times per day; 20 tablet; Refills: 0, Product cp Selection Permitted - Zithromax Z-Dirk 250 mg Oral Tablet - take 1 tablet ORAL route as directed for 5 days Day 1 - take two (2) tablets cp one time. Day 2, 3, 4 , 5 take one (1) tablet once daily.; 6 tablet; Refills: 0, Product Selection Permitted - Medrol (Dirk) 4 mg Oral Tablets, Dose Pack - take 1 tablet ORAL route as directed - follow package instructions; 1 packet; cp Refills: 0, Product Selection Permitted Signatures: Dispatcher [employer] Ant Leon PA PA cp Sims, Marcus, DO DO ms3 Sarah Daley RN RN kd3 Bret Banda RN RN as9
--- NOTE | 2023-09-06 02:01 | ER ---
Nurse's Notes [facility] Name: Fatuma Fallon Age: 33 yrs Sex: Female : 1990 Arrival Date: 09/05/2023 Time: 23:25 Bed 4 Private MD: Diagnosis: Cough;Acute laryngopharyngitis Presentation: 09/06 00:17 Chief complaint: Patient states: I have had a non productive cough for 5 days and today kd3 i started having a lot of chest pressure that gets worse when i lay down with shortness of breath. 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 I have not had a fever at home. Coronavirus screen: Vaccine status: Patient reports being unvaccinated. Ebola Screen: No symptoms or risks identified at this time. Initial Sepsis Screen: Does the patient meet any 2 criteria? No. Patient's initial sepsis screen is negative. Does the patient have a suspected source of infection? No. Patient's initial sepsis screen is negative. Risk Assessment: Do you want to hurt yourself or someone else? Patient reports no desire to harm self or others. Onset of symptoms was September 06, 2023. 00:17 Method Of Arrival: Ambulatory kd3 00:17 Acuity: LANA 3 kd3 Triage Assessment: 00:19 General: Appears in no apparent distress. Behavior is calm, cooperative. Pain: kd3 Complains of pain in chest. Respiratory: Reports shortness of breath at rest Onset: The symptoms/episode began/occurred gradually, the patient has moderate shortness of breath. Historical: - PMHx: 00:19 Anxiety; Bipolar disorder; mitral valve prolapse; PTSD; kd3 - Immunization history:: Adult Immunizations up to date. - Social history:: Smoking status: Reported history of juuling and/or vaping. Screenin:00 [facility] ED Fall Risk Assessment (Adult) History of falling in the last 3 months, as9 including since admission No falls in past 3 months (0 pts) Confusion or Disorientation No (0 pts) Intoxicated or Sedated No (0 pts) Impaired Gait No (0 pts) Mobility Assist Device Used No (0 pt) Altered Elimination No (0 pt). Abuse screen: Denies threats or abuse. Nutritional screening: No deficits noted. Tuberculosis screening: No symptoms or risk factors identified. Assessment: 01:57 General: Appears in no apparent distress. comfortable, Behavior is calm, cooperative, as9 appropriate for age. Pain: Complains of pain in chest Quality of pain is described as pressure. Neuro: Level of Consciousness is awake, alert, obeys commands, Oriented to person, place, time, situation, Appropriate for age. Cardiovascular: Capillary refill < 3 seconds Patient's skin is warm and dry. Respiratory: Airway is patent Respiratory effort is even, unlabored. 02:20 Reassessment: Patient states feeling better. Patient states symptoms have improved. as9 Cardiovascular: Rhythm is regular. Respiratory: Breath sounds are clear bilaterally. Vital Signs: 09/05 23:47 BP 115 / 88; Pulse 69; Resp 20; Pulse Ox 99% on R/A; as9 09/06 00:17 BP 115 / 86; Pulse 71; Resp 16; Temp 98.5; Pulse Ox 99% on R/A; Weight 90.72 kg; Height kd3 5 ft. 5 in. ; 01:18 BP 116 / 81; Pulse 62; Resp 19; Pulse Ox 99% on R/A; as9 01:46 BP 118 / 83; Pulse 63; Resp 20; Temp 97.3; Pulse Ox 100% on R/A; as9 02:20 BP 125 / 79; Pulse 78; Resp 18; Temp 98; Pulse Ox 100% on R/A; as9 00:17 Body Mass Index 33.28 (90.72 kg, 165.1 cm) kd3 [place] Coma Score: 02:20 Eye Response: spontaneous(4). Motor Response: obeys commands(6). Verbal Response: as9 oriented(5). Total: 15. ED Course: 09/05 23:29 Patient arrived in ED. [id number] 23:31 Isaiah Le DO is Attending Physician. ms3 23:31 Ant Lao PA is PHCP. cp 09/06 00:16 Sarah Daley, DEMOND is Primary Nurse. kd3 00:19 Triage completed. kd3 00:19 Arm band placed on right wrist. kd3 00:29 XRAY Chest (1 view) In Process Unspecified. EDMS 01:42 Throat Culture Sent. as9 01:43 Urinalysis W/Microscopic Sent. as9 01:43 Test, Urine Sent. as9 01:44 Inserted saline lock: 20 gauge in right forearm, using aseptic technique. as9 02:00 Patient has correct armband on for positive identification. Bed in low position. Call as9 light in reach. Side rails up X 1. Provided Education on: medication instructions provided. 02:22 No provider procedures requiring assistance completed. IV discontinued, intact, as9 bleeding controlled, No redness/swelling at site. Pressure dressing applied. Administered Medications: 01:32 Not Given (Physician Discretion): mg IM once cp 01:41 Drug: Decadron - Dexamethasone IVP 10 mg IVP once Route: IVP; Site: right forearm; as9 02:19 Follow up: Response: No adverse reaction as9 01:41 Drug: DuoNeb Nebulize (2.5 mg - 0.5 mg) 3 ml Nebulizer once Route: Nebulizer; as 02:19 Follow up: Response: Wheezing diminished as9 01:41 Drug: Tussionex Pennkinetic ER PO Suspension 5 ml PO once Route: PO; as9 02:20 Follow up: Response: No adverse reaction as9 02:19 Not Given (Patient Refused): [id number] mg IVP once as9 Medication: 02:02 VIS not applicable for this client. as9 Outcome: 02:01 Discharge ordered by MD. cp 02:21 Discharged to home ambulatory, as 02:21 Condition: good 02:21 Condition: improved 02:21 Discharge instructions given to patient, Instructed on discharge instructions, follow up and referral plans. medication usage, Demonstrated understanding of instructions, follow-up care, medications, Prescriptions given X 4, 02:23 Patient left the ED. as9 Signatures: Dispatcher [employer] EDMS Ant Lao PA PA cp Sims, Marcus, DO DO ms3 Anh Hutchinson jj6 Sarah Daley RN RN kd3 Bret Banda, DEMOND RN as9
[2023-09-06 02:10] LABS: Specific Gravity 1.019 (1.005-1.030); Urine Bacteria None Seen /HPF (<20); Urine Bilirubin NEGATIVE (Negative); Urine Blood Negative (Negative); Urine Clarity Turbid (Clear); Urine Color Light-Yellow (Yellow); Urine Glucose NEGATIVE (Negative); Urine Mucus Slight /HPF (None Seen); Urine Protein NEGATIVE (Negative); Urine RBC <5 /HPF (None Seen); Urine Urobilinogen Normal (Normal); Urine pH 5.5 (5.0-7.0)
[2023-09-06 02:11] LABS: Specific Gravity 1.019 (1.005-1.030)
[2023-09-06 05:40] VITALS: BP 125/79; TEMP 98; O2SAT 100
--- NOTE | 2023-09-07 16:42 | RAD REPORT ---
EXAM DESCRIPTION: RAD - Chest Single View - 09/06/2023 12:27 am CLINICAL HISTORY: The patient is 33 years old and is Female; Chest pain;Cough Bed Name: 4 TECHNIQUE: Frontal view of the chest. COMPARISON: No relevant prior studies available. FINDINGS: LUNGS: Relative hazy appearance of the bilateral lung bases favored secondary to overlyi ng dense breast stroma. No discrete focal consolidation. PLEURAL SPACE: No appreciable pleural effusion or pneumothorax. MEDIASTINUM: Prominence of the cardiomediastinal silhouette, likely exaggerated secondary to portab le technique, lordotic positioning, and patient body habitus. BONES/JOINTS: No acute osseous abnormality. IMPRESSION: No acute findings in the chest. 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 The interpreting radiologist is fully responsible for the content of the report.
--- NOTE | 2023-09-08 13:40 | EKG ---
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
== END 2023-09-06 02:23 | disposition home or self-care (01) ==
LOC: ER 23:25
DX: R05.9 Cough, unspecified (principal); J06.0 Acute laryngopharyngitis; R07.9 Chest pain, unspecified; Z11.52 Encounter for screening for COVID-19
CPT/HCPCS: 71045; 93005; 94640; 96374; 99285

== ENCOUNTER 2024-06-30 19:20 | Emergency (ER) | payer BC ==
--- OUTSIDE RECORDS SUMMARY | 2024-06-30 19:26 | XMS REPORT | Continuity of Care Document ---
Author Name Unknown Address [address] [facility] [address] [place] [address] [facility] thconnect Address [address] [facility] [place] [address] Care Team Providers Care Religious Education Coordinator Name Role Phone [facility] JR Primary Care Physician EPI Case Attending Clinician Unavailable EPI MONZON Attending Clinician Unavailable Epi Monzon MD Attending Clinician [phone] REBECCA LANIER Attending Clinician Unavailable Rebecca Rojo Attending Clinician [phone] Unknown, Attending Attending Clinician UnavailCeleste Frausto PA-C Attending Clinician [phone] LANCE GARCIA Attending Clinician UnavailLANCE Sol Attending Clinician UnavailCeleste Hernandez PA-C Attending Clinician CELESTE WOODALL Attending Clinician Unavailable Doctor Unassigned, [place] Attending Clinician U LENCHO Mckeon Attending Clinician Unavailable Provider, [facility] Attending Clinician Un available RUPERTO RAMSEY Attending Clinician Unavailable Payers Payer Name Policy Type Policy Number Effective Date Expirati on Date Source [facility] [id number] 2023 00:00:00 [employer] 2 [id number] 2022 00:00:00 Problems Condition Name Condition Details Condition Category Status Onset Date Resolution Date Last Treatment Date Treating Clinician Comments Source Acute pharyngiti s Acute pharyngiti s Disease Active 2021-07 0 00:00: 00 Marlene Seybold - Externa l Obesity (BMI 30-39.9) Obesity (BMI 30-39.9) Disease Active 8 00:00: 00 [facility] Allergies, Adverse Reactions, Alerts Allergy Name Allergy Type Status Severity Reaction(s) Onset Date Inactive Date Treating Clinician Comments Source NO KNOWN ALLERGIE S Drug Class Active [facility] Social History Social Habit Start Date Stop Date Quantity Comments Source History of tobacco use Cigarette Smoker [facility] SDOH Alcohol Comment Callao o f [facility] Alcoholic beverage intake 2024-06-09 00:00:00 2024-06-09 00:00:00 Current drinker of alcohol (finding) [facility] Tobacco use and exposure 2024-05-10 00:00:00 2024-05-10 00:00:00 Smokeless tobacco non-user [facility] Alcohol intake 2023-05-05 00:00:00 2023-05-05 00:00:00 Current drinker of alcohol (finding) [facility] Exposure to SARS-CoV-2 (event) 2022-03-18 00:00:00 2022-03-28 12:52:00 Not sure [facility] History of Social function 2020-08-02 00:00:00 2020-08-02 00:00:00 [facility] Cigarettes smoked current (pack per day) - Reported 2020-08-02 00:00:00 2020-08-02 00:00:00 [facility] History SDOH Alcohol Frequency 2020-08-02 00:00:00 2020-08-02 00:00:00 2 [facility] History SDOH Alcohol Std Drinks 2020-08-02 00:00:00 2020-08-02 00:00:00 1 [facility] History SDOH Alcohol Binge 2020-08-02 00:00:00 2020-08-02 00:00:00 1 [facility] Sex Assigned At 1990 00:00:00 1990 00:00:00 Marlene anisa - External Smoking Status Start Date Stop Date Source Smokes tobacco daily 2024-05-10 00:00:00 [facility] Medications Ordered Medication Name Filled Medication Name Start Date Stop Date Current Medication? Ordering Clinician Indication Dosage Frequency Signature (SIG) Comments Components Source amoxicillin -clavulanat e (AUGMENTIN) 875-125 mg per tablet 2023-07 00:00: 00 06-14 05:59 :00 Yes [id number] 1{tbl} Take 1 tablet by mouth in the morning and 1 tablet in the evening. Do all this for 10 days. [facility] ondansetron 4 mg disintegrat ing tablet 2023-07 00:00: 00 06-09 05:59 :00 Yes [id number] 4mg Take 1 tablet by mouth every 8 (eight) hours as needed for Nausea and Vomiting (N/V) for up to 5 days. [facility] Norethindrn A-E Estradiol-I brenton () 1 mg-20 mcg (24)/75 mg (4) per tablet 2023-07 00:00: 00 Yes [id number] 1{tbl} Take 1 tablet by mouth in the morning. [facility] metformin ER 500 mg 24 hr tablet 04-19 00:00: 00 Yes TAKE ONE (1) TABLET(S) BY MOUTH IN THE EVENING WITH FOOD FOR 1 WEEK , THEN TAKE 1 TAB IN THE MORNING AND EVENING WITH FOOD. [facility] topiramate 25 mg tablet 04-19 00:00: 00 Yes 50mg Take 2 tablets by mouth in the morning and 2 tablets in the evening. [facility] norethindro ne-e.estrad ioL-iron (LO LOESTRIN FE) 1 mg-10 mcg (24)/10 mcg (2) per tablet 2022-07 0-12 00:00: 00 05-10 00:00 :00 No [id number] 1{tbl} Take 1 tablet by mouth in the morning. [facility] metroNIDAZO LE 500 mg tablet 2022-07 0 00:00: 00 05-10 00:00 :00 No [id number] 500mg Take 1 tablet by mouth every 12 (twelve) hours. [facility] fluconazole 150 mg tablet 2022-07 0 00:00: 00 05-06 04:59 :00 No [id number] 150mg Take 1 tablet by mouth once now for 1 dose. [facility] metoprolol succinate XL 100 mg 24 hr tablet 04-23 00:00: 00 Yes [facility] DULoxetine 60 mg capsule 04-08 00:00: 00 Yes [facility] zolpidem 12.5 mg CR tablet 8 00:00: 00 Yes [facility] ondansetron 4 mg disintegrat ing tablet 02-21 00:00: 00 Yes [facility] LORazepam 1 mg tablet 02-04 00:00: 00 Yes [facility] Benzonatate (Tessalon Perles) 100 MG oral Capsule 2021-07 006 00:00: 00 Yes [id number] 100mg [id number] 3D Take 1 capsule (100 mg total) by mouth 3 times daily as needed for cough Marlene osorio Azithromyci n 250 MG oral Tablet 2021-07 0-06 00:00: 00 05-08 04:59 :00 No [id number] Take 2 tablets by mouth on day 1 then 1 tablet by mouth daily for 4 days thereafter . Marlene osorio kenneth melaraestrad ioL-iron (LO LOESTRIN FE) 1 mg-10 mcg (24)/10 mcg (2) per tablet 18 00:00: 00 05-07 00:00 :00 No [id number] 1{tbl} Take 1 tablet by mouth in the morning. [facility] benzonatate (TESSALON PERLES) 100 mg capsule 08-02 00:00: 00 04-28 00:00 :00 No [id number] 100mg Take 1 capsule by mouth 3 (three) times daily. [facility] azelastine 137 mcg (0.1 %) nasal spray 08-02 00:00: 00 04-28 00:00 :00 No [id number] 1{spray } Use 1 Tennille in each nostril 2 (two) times daily. Use in each nostril as directed [facility] Immunizations Ordered Immunization Name Filled Immunization Name Date Status Comments Source TDAP 2024-06-03 00:00:00 Completed [facility] Vital Signs Vital Name Observation Time Observation Value Comments S ource Systolic blood pressure 2024-06-03 17:15:00 109 mm[Hg] [facility] Diastolic blood pressure 2024-06-03 17:15:00 75 mm[Hg] [facility] Heart rate 2024-06-03 17:15:00 79 /min [facility] Body temperature 2024-06-03 17:15:00 36.72 Aline [facility] Respiratory rate 2024-06-03 17:15:00 20 /min [facility] Body weight 2024-06-03 17:15:00 98.158 kg [facility] BMI 2024-06-03 17:15:00 36.01 kg/m2 [facility] Oxygen saturation in Arterial blood by Pulse oximetry 2024-06-03 17:15:00 97 /min [facility] Systolic blood pressure 2024-05-10 19:48:00 104 mm[Hg] [facility] Diastolic blood pressure 2024-05-10 19:48:00 78 mm[Hg] [facility] Heart rate 2024-05-10 19:48:00 79 /min Unive [facility] Body temperature 2024-05-10 19:48:00 36.17 Aline [facility] Body height 2024-05-10 19:48:00 165.1 cm [facility] Body weight 2024-05-10 19:48:00 99.247 kg [facility] BMI 2024-05-10 19:48:00 36.41 kg/m2 [facility] Systolic blood pressure 2023-05-05 19:34:00 126 mm[Hg] [facility] Diastolic blood pressure 2023-05-05 19:34:00 82 mm[Hg] [facility] Heart rate 2023-05-05 19:34:00 71 [facility] Body temperature 2023-05-05 19:34:00 36.72 Aline [facility] Respiratory rate 2023-05-05 19:34:00 18 /min [facility] Body height 2023-05-05 19:34:00 162.6 cm [facility] Body weight 2023-05-05 19:34:00 87.091 kg [facility] BMI 2023-05-05 19:34:00 32.96 kg/m2 [facility] Heart rate 2022-05-02 20:07:00 100 /min Kelse y Seybold - External Body temperature 2022-05-02 20:07:00 36.89 Aline Marlene Seybold - External Respiratory rate 2022-05-02 20:07:00 14 /min Marlene Seybold - External Body height 2022-05-02 20:07:00 162.6 cm Paula ey Seybold - External Body weight 2022-05-02 20:07:00 87.091 kg Paula ey Seybold - External BMI 2022-05-02 20:07:00 32.96 kg/m2 Paula ey Seybold - External Systolic blood pressure 2022-05-02 20:07:00 114 mm[Hg] Marlene Mendeso ld - External Diastolic blood pressure 2022-05-02 20:07:00 64 mm[Hg] Marlene Cevallos ld - External Systolic blood pressure 2022-03-28 18:17:00 109 mm[Hg] Callao o [facility] Diastolic blood pressure 2022-03-28 18:17:00 72 mm[Hg] Callao o [facility] Heart rate 2022-03-28 18:17:00 63 /min [facility] Body temperature 2022-03-28 18:17:00 37 Aline [facility] Respiratory rate 2022-03-28 18:17:00 18 /min [facility] Body height 2022-03-28 18:17:00 165.1 cm [facility] Body weight 2022-03-28 18:17:00 85.458 kg [facility] BMI 2022-03-28 18:17:00 31.35 kg/m2 [facility] Procedures Procedure Date / Time Performed Performing Clinician Source BI ULTRASOUND BREAST COMPLETE RIGHT 2024-06-09 16:33:00 Epi Monzon [facility] BI DIAGNOSTIC TOMOSYNTHESIS BILATERAL 2024-06-09 15:52:48 Epi Monzon [facility] TDAP VACCINE, >11 YRS, IM 2024-06-03 17:21:41 Rebecca Lanier [facility] POCT TEST 2024-05-10 00:00:00 Epi Monzon [facility] ASSIGNMENT OF BENEFITS 2023-05-05 19:13:06 Docto r Unassigned, [place] [facility] POCT TEST 2023-05-05 00:00:00 Josselin Woodall [facility] POCT URINALYSIS W/O SPECIFIC GRAVITY 2023-05-05 00:00:00 Celeste Woodall [facility] US PELVIS COMPLETE WITH TRANSVAGINAL 2022-03-28 21:11:00 Celeste Woodall [facility] Encounters Start Date/Time End Date/Time Encounter Type Admission Type Attending Clinicians Care Facility Care Department Encounter ID Source 2024-06-09 08:03:53 2024-06-09 23:59:00 Outpatient R EPI MONZON [facility] [id number] [facility] 2024-06-09 08:03:53 2024-06-09 23:59:00 Hospital Encounter Epi Monzon [facility] 1.2.840.114 350.1.13.10 4.2.7.2.686 [id number] [facility] 2024-06-09 00:00:00 2024-06-09 19:27:07 Case Management Epi Monzon [facility] 1.20.114 350.1.13.10 4.2.7.2.686 [id number] [facility] 2024-06-09 07:56:35 2024-06-09 08:02:00 Hospital Encounter Epi Monzon [facility] 1.2840.114 350.1.13.10 4.2.7.2.686 [id number] [facility] 2024-06-03 18:00:00 2024-06-03 18:00:00 Outpatient R [facility] [id number] [facility] 2024-06-03 10:40:00 2024-06-03 11:37:58 Outpatient R CALOS REBECCA [facility] [id number] [facility] 2024-06-03 10:40:00 2024-06-03 11:37:58 Urgent Care PhilipRebecca nayak Unknown, Attending [facility] 1..114 350.1.13.10 4.2.7.2.686 [id number] [facility] 2024-05-20 00:00:00 2024-05-20 08:27:43 Celeste Santana [facility] 1.20.114 350.1.13.10 4.2.7.2.686 [id number] [facility] 2024-05-10 15:00:00 2024-05-10 15:09:28 Outpatient R EPI MONZON EPI [facility] [id number] [facility] 2024-05-10 15:00:00 2024-05-10 15:09:28 [facility] 1.2.840.114 350.1.13.10 4.2.7.2.686 [id number] [facility] 2023-10-30 13:30:00 2023-10-30 13:30:00 Outpatient R LANCE GARCIA CRAIG [facility] [id number] [facility] 2023-05-07 00:00:00 2023-05-07 00:00:00 [facility] 1.2.840.114 350.1.13.10 4.2.7.2.686 [id number] [facility] 2023-05-07 00:00:00 2023-05-07 00:00:00 Refill Jose C [facility] BU[facility] 1.2.840.114 350.1.13.10 4.2.7.2.686 [id number] [facility] 2023-05-05 14:30:00 2023-05-05 15:09:25 Outpatient R JOSE C [facility] [id number] [facility] 2023-05-05 14:30:00 2023-05-05 15:09:25 Office Visit Jose C [facility] N[facility] BUILD[facility] 1.2.840.114 350.1.13.10 4.2.7.2.686 [id number] [facility] 2023-05-05 00:00:00 2023-05-05 00:00:00 Orders Only Doctor Unassigned, [place] [facility] 1.84.114 350.1.13.10 4.2.7.2.686 [id number] [facility] 2023-04-25 00:00:00 2023-04-25 00:00:00 Refill Epi Monzon [facility] 1.84.114 350.1.13.10 4.2.7.2.686 [id number] [facility] 2022-05-30 14:15:00 2022-05-30 14:15:00 Outpatient LENCHO MELTON [id number] [facility] 2022-05-07 15:00:00 2022-05-07 15:00:00 Outpatient R [facility] [id number] [facility] 2022-05-02 15:15:00 2022-05-02 15:15:00 Outpatient LENCHO MELTON [id number] [facility] 2022-03-28 15:09:33 2022-03-28 23:59:00 [id number] 2022-03-28 15:09:33 2022-03-28 23:59:00 [facility] 1.84.114 350.1.13.10 4.2.7.2.686 [id number] [facility] 2022-03-28 13:30:00 2022-03-28 13:56:28 Outpatient R EPI MONZON [facility] [id number] [facility] 2022-03-28 13:30:00 2022-03-28 13:56:28 Office Visit Epi Monzon [facility] 1.840.114 350.1.13.10 4.2.7.2.686 [id number] [facility] 2022-03-28 13:00:00 2022-03-28 13:00:00 Outpatient EPI ZUÑIGA [facility] [id number] [facility] 2022 14:15:00 2022 15:12:40 Office Visit Jose C [facility] 1.84.114 350.1.13.10 4.2.7.2.686 [id number] [facility] 2022 14:15:00 2022 15:12:40 Outpatient R JOSE C [facility] [id number] [facility] 2022 14:15:00 2022 15:12:40 Outpatient R JOSE C [facility] [id number] [facility] 2022 14:15:00 2022 15:12:40 Outpatient R JOSE C [facility] [id number] [facility] 2022 00:00:00 2022 00:00:00 Orders Only Doctor Unassigned, [place] [facility] 1.84.114 350.1.13.10 4.2.7.2.686 [id number] [facility] 2020-08-02 10:19:40 2020-08-02 11:11:19 Urgent Care Provider, [facility] 1.84.114 350.1.13.10 4.2.7.2.686 [id number] 2020-08-02 10:20:00 2020-08-02 10:20:00 Outpatient RUPERTO SELLERS [facility] [id number] [facility] 2020-08-02 08:35:00 2020-08-02 08:35:00 Outpatient RUPERTO SELLERS [facility] [id number] [facility] 2020-08-02 00:00:00 2020-08-02 00:00:00 Letter (Out) Doctor Unassigned, [place] [facility] 1.2.840.114 350.1.13.10 4.2.7.2.686 [id number] Results Test Description Test Time Test Comments Results Resul t Comments Source BI ULTRASOUND BREAST COMPLETE RIGHT 2024-05-28 3 20:14:18 Examination:BI DIAGNOSTIC TOMOSYNTHESIS BILATERALBI ULTRASOUND BREAST COMPLETE RIGHT History:Patient is 34 year old and is seen for: ?Right breast pain x 2-3 months. Comparisons : None available Findings:There are scattered areas of fibroglandular density. RightBI DIAGNOSTIC TOMOSYNTHESIS BILATERALThere is a 14 mm asymmetry seen in the outer region of the right breast in the anterior depth, 3 cm from the nipple. Right breast ultrasound: Survey ultrasound of the right breast and axilla was performed. No sonographic correlate is noted for the asymmetry in the lateral right breast, 3 cm from the nipple. No sonographic correlate is noted for the patient's history of nonspecific, diffuse, right breast discomfort. The visualized level 1 axillary lymph nodes appear unremarkable. LeftBI DIAGNOSTIC TOMOSYNTHESIS BILATERALThere is no evidence of suspicious masses, calcifications, or other abnormal findings in the left breast. Impression: Right: There is a 14 mm asymmetry in the lateral right breast, anterior depth, 3 cm from the nipple; best seen on RCC image 36 of 78 and RXCCL 31 of 83 with no sonographic correlate. ?Short interval follow-up 3D mammogram is recommended in 6 months to document stability and exclude an underlying abnormality. ?BI-RADS 3. Left: There is no evidence of malignancy. Recommendation:Shor t interval follow-up 3D mammogram 6 months - RightFollow-up at age 40 or based on current ACR guidelines - Left Clinical follow-up is also recommended, and further management of clinical findings should be based on the results of clinical evaluation. BI-RADS Category:Left: 1 - NegativeRight: 3 - Probably BenignOverall: 3 - Probably Benign [facility] BI DIAGNOSTIC TOMOSYNTHESIS BILATERAL 2024-05-28 3 20:14:18 Examination:BI DIAGNOSTIC TOMOSYNTHESIS BILATERALBI ULTRASOUND BREAST COMPLETE RIGHT History:Patient is 34 year old and is seen for: ?Right breast pain x 2-3 months. Comparisons : None available Findings:There are scattered areas of fibroglandular density. RightBI DIAGNOSTIC TOMOSYNTHESIS BILATERALThere is a 14 mm asymmetry seen in the outer region of the right breast in the anterior depth, 3 cm from the nipple. Right breast ultrasound: Survey ultrasound of the right breast and axilla was performed. No sonographic correlate is noted for the asymmetry in the lateral right breast, 3 cm from the nipple. No sonographic correlate is noted for the patient's history of nonspecific, diffuse, right breast discomfort. The visualized level 1 axillary lymph nodes appear unremarkable. LeftBI DIAGNOSTIC TOMOSYNTHESIS BILATERALThere is no evidence of suspicious masses, calcifications, or other abnormal findings in the left breast. Impression: Right: There is a 14 mm asymmetry in the lateral right breast, anterior depth, 3 cm from the nipple; best seen on RCC image 36 of 78 and RXCCL 31 of 83 with no sonographic correlate. ?Short interval follow-up 3D mammogram is recommended in 6 months to document stability and exclude an underlying abnormality. ?BI-RADS 3. Left: There is no evidence of malignancy. Recommendation:Shor t interval follow-up 3D mammogram 6 months - RightFollow-up at age 40 or based on current ACR guidelines - Left Clinical follow-up is also recommended, and further management of clinical findings should be based on the results of clinical evaluation. BI-RADS Category:Left: 1 - NegativeRight: 3 - Probably BenignOverall: 3 - Probably [id number]:54:00* Test Item Value Reference Range Interpretation Comme [facility] POCT PREG (test code = 1605) Negative On board controls acceptable with C Line (test code = 3574) Yes POCT PREG LOT # (test code = 3575) POCT PREG TEST DATE ( test code = 3576) [id number] 19:54:00* Test Item Value Reference Range Interpretation Comme [facility] POCT PREG (test code = 1605) Negative On board controls acceptable with C Line (test code = 3574) Yes POCT PREG LOT # (test code = 3575) POCT PREG TEST DATE ( test code = 3576) [facility]/O SPECIFIC [id number] 19:53:00* Test Item Value Reference Range Interpretation [...] = 3257) neg Negative - Negati ve [facility]/O SPECIFIC [id number] 19:53:00* Test Item Value Reference Range Interpretation [...] = 3257) neg Negative - Negati ve [facility]
[2024-06-30 20:07] LABS: Absolute Basophils 0.1 K/uL (0-0.5); Absolute Eosinophils 0.1 K/uL (0-0.5); Absolute Lymphocytes (CBC) 2.9 K/uL (0.7-4.9); Absolute Monocytes 0.6 K/uL (0.1-1.3); Absolute Neutrophil 6.3 K/uL (1.8-8.0); Basophils % 0.8 % (0-1.3); Eosinophils % 0.8 % (0-4.4); Hematocrit 41.6 % (36.0-45.0); Lymphocytes % 28.6 % (15.3-44.8); MCH 31.7 pg (27.0-35.0); MCHC 33.6 g/dL (32.0-36.0); MCV 94.3 fL (80-100); MPV 9.4 fL (7.6-11.3); Monocytes % 6.2 % (3.3-12.3); Neutrophils % 63.6 % (41.7-73.7); Platelets 235 thou/uL (152-406); RBC Red Blood Cell Count 4.41 M/uL (3.86-4.86); Red Cell Distribution Width 12.7 % (12.1-15.2)
[2024-06-30 20:22] LABS: Anion Gap 10.6 mEq/L (5.0-15.0); Magnesium 2.2 mg/dL (1.6-2.4); Potassium 3.6 mEq/L (3.5-5.1)
--- NOTE | 2024-06-30 20:50 | RAD REPORT ---
Procedure: Chest Single View HISTORY: Cough COMPARISON: August 2023 FINDINGS: The lungs appear clear of acute infiltrate. No significant pleural effusion noted. The heart is normal size. IMPRESSION: No acute abnormality is displayed.
--- NOTE | 2024-06-30 21:16 | ER ---
Nurse's Notes [facility] Name: Fatuma Fallon Age: 34 yrs Sex: Female : 1990 Arrival Date: 06/30/2024 Time: 19:20 Bed 15 Private MD: Diagnosis: Palpitations Presentation: 06/30 19:45 Chief complaint: Patient states: I started having chest pain yesterday with some SOB. jb4 Coronavirus screen: At this time, the client does not indicate any symptoms associated with coronavirus-19. Ebola Screen: No symptoms or risks identified at this time. Initial Sepsis Screen: Does the patient meet any 2 criteria? No. Patient's initial sepsis screen is negative. Does the patient have a suspected source of infection? No. Patient's initial sepsis screen is negative. 19:45 Method Of Arrival: Ambulatory jb4 19:45 Acuity: LANA 2 jb4 19:45 Risk Assessment: Do you want to hurt yourself or someone else? Patient reports no jb4 desire to harm self or others. Onset of symptoms was June 30, 2024. Transition of care: patient was not received from another setting of care. Triage Assessment: 19:45 General: Appears in no apparent distress. comfortable, Behavior is calm, cooperative, jb4 appropriate for age. Pain: Complains of pain in chest Pain does not radiate. Pain currently is 4 out of 10 on a pain scale. Neuro: Level of Consciousness is awake, alert, obeys commands, Oriented to person, place, time, situation. Cardiovascular: Patient's skin is warm and dry. Respiratory: Airway is patent Respiratory effort is even, unlabored, Respiratory pattern is regular, symmetrical. Derm: Skin is intact, Skin is pink, warm \T\ dry. Musculoskeletal: Circulation, motion, and sensation intact. Range of motion: intact in all extremities. Historical: - Allergies: 19:46 Eggs; ph - PMHx: 19:46 Anxiety; Bipolar disorder; mitral valve prolapse; PTSD; ph - PSHx: 19:46 None; ph - Immunization history:: Adult Immunizations up to date. - Infectious Disease History:: Denies. - Social history:: Smoking status: Reported history of juuling and/or vaping. Patient uses alcohol, only on a social basis. street drugs, marijuana. Screenin:48 [facility] ED Fall Risk Assessment (Adult) History of falling in the last 3 months, jb4 including since admission No falls in past 3 months (0 pts) Confusion or Disorientation No (0 pts) Intoxicated or Sedated No (0 pts) Impaired Gait No (0 pts) Mobility Assist Device Used No (0 pt) Altered Elimination No (0 pt) Score/Fall Risk Level 0 - 2 = Low Risk Oriented to surroundings, Maintained a safe environment. Abuse screen: Denies threats or abuse. Nutritional screening: No deficits noted. Tuberculosis screening: No symptoms or risk factors identified. Assessment: 19:48 Reassessment: see triage note. jb4 21:00 Reassessment: Patient appears in no apparent distress at this time. No changes from jb4 previously documented assessment. Patient and/or family updated on plan of care and expected duration. Pain level reassessed. Vital Signs: 19:42 BP 92 / 54; Pulse 83; Resp 16; Temp 97.9; Pulse Ox 96% ; Weight 96.62 kg; Height 5 ft. ty 5 in. ; Pain 5/10; 21:15 BP 102 / 72; Pulse 73; Resp 16; Pulse Ox 97% on R/A; jb4 19:42 Body Mass Index 35.44 (96.62 kg, 165.1 cm) ty 19:42 Pain Scale: Adult ty ED Course: 19:27 Patient arrived in ED. gm2 19:28 Sarah Gastelum FNP-C is PHCP. kb 19:28 Ant Meng MD is Attending Physician. kb 19:42 EKG done, by ED staff, reviewed by Sarah CODY. ty 19:45 Arm band placed on right wrist. jb4 19:46 Triage completed. ph 19:48 No provider procedures requiring assistance completed. Patient maintains SpO2 ph saturation greater than 95% on room air. 19:48 Patient has correct armband on for positive identification. Placed in gown. Bed in low jb4 position. Call light in reach. Side rails up X 1. 19:48 Provided Education on: plan of care. jb4 20:00 Initial lab(s) drawn, by me, sent to lab. Inserted saline lock: 18 gauge in right jb4 antecubital area, using aseptic technique. Blood collected. 20:21 XRAY Chest (1 view) In Process Unspecified. EDMS 21:57 Jose Martin, Ancelmo, RN is Primary Nurse. 4 21:59 IV discontinued, intact, bleeding controlled, No redness/swelling at site. Pressure jb4 dressing applied. Administered Medications: No medications were administered Medication: 19:48 VIS not applicable for this client. Outcome: 21:16 Discharge ordered by . kb 21:30 Discharged to home ambulatory, with family, jb4 21:30 Condition: stable 21:30 Discharge instructions given to patient, Instructed on discharge instructions, follow up and referral plans. Demonstrated understanding of instructions, follow-up care, 22:00 Patient left the ED. 4 Signatures: Dispatcher [employer] EDOR Sarah Gastelum, JAY-C JAY-Rocio Anaya RN RN Ancelmo Philippe RN RN 4 Letitia Ernst 2 Marcos Bacon Corrections: (The following items were deleted from the chart) 19:47 19:46 Allergies: EGG DERIVED; ph 21:58 19:48 Reassessment: see triage note [facility] :59 19:48 Patient has correct armband on for positive identification. Placed in gown. Bed jb4 in low position. Call light in reach. Side rails up X 1. 21:59 19:48 Provided Education on: plan of care. [facility] :59 19:48 [facility] ED Fall Risk Assessment (Adult) History of falling in the last 3 months, jb4 including since admission No falls in past 3 months (0 pts) Confusion or Disorientation No (0 pts) Intoxicated or Sedated No (0 pts) Impaired Gait No (0 pts) Mobility Assist Device Used No (0 pt) Altered Elimination No (0 pt) Score/Fall Risk Level 0 - 2 = Low Risk Oriented to surroundings, Maintained a safe environment, 21:59 19:48 Abuse screen: Denies threats or abuse. [facility] :59 19:48 Nutritional screening: No deficits noted. [facility] 19:48 Tuberculosis screening: No symptoms or risk factors identified. [facility] 07/01 02:06/30 19:45 Chief complaint: Patient states: I started having chest pain yesterday with jb4 some SOB. 07/01 02:06/30 19:45 Coronavirus screen: At this time, the client does not indicate any symptoms jb4 associated with coronavirus-19. 07/01 19:45 Ebola Screen: No symptoms or risks identified at this time. [facility] 07/01 19:45 Initial Sepsis Screen: Does the patient meet any 2 criteria? No. Patient's 4 initial sepsis screen is negative. Does the patient have a suspected source of infection? No. Patient's initial sepsis screen is negative. 07/01 19:45 Risk Assessment: Do you want to hurt yourself or someone else? Patient 4 reports no desire to harm self or others. 07/01 19:45 Onset of symptoms was June 29, 2024 [facility] 07/01 19:45 Transition of care: patient was not received from another setting of care. [facility] 07/01 19:45 Method Of Arrival: Ambulatory [facility] 07/01 19:45 Acuity: LANA 2 [facility] 07/01 03:00 06/30 19:46 General: Appears in no apparent distress. comfortable, Behavior is calm, jb4 cooperative, appropriate for age, 07/01 03:00 06/30 19:46 Pain: Complains of pain in chest Pain does not radiate. Pain currently is 4 jb4 out of 10 on a pain scale. 07/01 03:00 06/30 19:46 Neuro: Level of Consciousness is awake, alert, obeys commands, Oriented to [facility] person, place, time, situation, 07/01 03:00 06/30 19:46 Cardiovascular: Patient's skin is warm and dry. [facility] 03:00 12 19:46 Respiratory: Airway is patent Respiratory effort is even, unlabored, jb4 Respiratory pattern is regular, / 03:00 06/30 19:46 Derm: Skin is intact, Skin is pink, warm \T\ dry. [facility] 03:00 12 19:46 Musculoskeletal: Circulation, motion, and sensation intact. Range of 4 motion: intact in all extremities, 07/01 03:00 06/30 19:46 Arm band placed on right wrist. [facility]
--- NOTE | 2024-06-30 21:16 | EDPHYS ---
Physician Documentation [facility] Name: Fatuma Fallon Age: 34 yrs Sex: Female : 1990 Arrival Date: 06/30/2024 Time: 19:20 Bed 15 Private MD: ED Physician Ant Meng HPI: 06/30 21:15 This 34 yrs old Female presents to ER via Ambulatory with complaints of Chest Pain, kb Palpitations, Headache. 21:15 Pt is a 34 year old female who presents for palpitations and headache that started 2 kb days ago. States she has a history of MVP so she just wanted to make sure everything was ok. Denies shortness of breath. Reports intermittent chest pain. Historical: - Allergies: 19:46 Eggs; ph - PMHx: 19:46 Anxiety; Bipolar disorder; mitral valve prolapse; PTSD; ph - PSHx: 19:46 None; ph - Immunization history:: Adult Immunizations up to date. - Infectious Disease History:: Denies. - Social history:: Smoking status: Reported history of juuling and/or vaping. Patient uses alcohol, only on a social basis. street drugs, marijuana. ROS: 21:14 Constitutional: As per HPI kb Exam: 19:39 Constitutional: This is a well developed, well nourished patient who is awake, alert, kb and in no acute distress. Head/Face: Normocephalic, atraumatic. ENT: Moist Mucous membranes Cardiovascular: Regular rate Respiratory: Respirations even and unlabored. No increased work of breathing. Talking in full sentences Abdomen/GI: Soft, non-tender. No distention Skin: Warm, dry with normal turgor. Normal color. MS/ Extremity: Pulses equal, no cyanosis. Neurovascular intact. Full, normal range of motion. Neuro: Awake and alert, GCS 15, oriented to person, place, time, and situation. 19:39 ECG was reviewed by the Attending Physician. Vital Signs: 19:42 BP 92 / 54; Pulse 83; Resp 16; Temp 97.9; Pulse Ox 96% ; Weight 96.62 kg; Height 5 ft. ty 5 in. ; Pain 5/10; 21:15 BP 102 / 72; Pulse 73; Resp 16; Pulse Ox 97% on R/A; jb4 19:42 Body Mass Index 35.44 (96.62 kg, 165.1 cm) ty 19:42 Pain Scale: Adult ty MDM: 19:28 Medical Screening Exam initiated kb 21:14 Differential diagnosis: acute mi, arrhythmia, dehydration. Data reviewed: vital signs, kb nurses notes. Historians other than the Patient: Parent: mother. Counseling: I had a detailed discussion with the patient and/or guardian regarding the historical points, exam findings, and any diagnostic results supporting the discharge/admit diagnosis, lab results, radiology results, the need for outpatient follow up, a family practitioner, to return to the emergency department if symptoms worsen or persist or if there are any questions or concerns that arise at home. ED course: Pt prefers to hydrate at home instead of getting IV fluids at this time. . 06/30 19:38 Order name: Basic Metabolic Panel; Complete Time: 20:56 kb 06/30 19:38 Order name: CBC with Diff; Complete Time: 20:56 kb 06/30 19:38 Order name: Magnesium; Complete Time: 20:56 kb 06/30 19:38 Order name: NT PRO-BNP; Complete Time: 20:56 kb 06/30 19:38 Order name: Troponin HS; Complete Time: 20:56 kb 06/30 19:38 Order name: XRAY Chest (1 view); Complete Time: 20:56 kb 06/30 19:38 Order name: EKG; Complete Time: 19:38 kb 06/30 19:38 Order name: Cardiac monitoring; Complete Time: 20:29 kb 06/30 19:38 Order name: EKG - Nurse/Tech; Complete Time: 20:29 kb 06/30 19:38 Order name: IV Saline Lock; Complete Time: 20:29 kb 06/30 19:38 Order name: Labs collected and sent; Complete Time: 20:29 kb 06/30 19:38 Order name: O2 Per Protocol; Complete Time: 20:29 kb 06/30 19:38 Order name: O2 Sat Monitoring; Complete Time: 20:29 kb EC:39 Rate is 79 beats/min. Rhythm is regular. QRS [place] is Normal. [place] interval is normal at kb 154 msec. QRS interval is normal at 78 msec. QT interval is normal at 405 msec. Administered Medications: No medications were administered Disposition Summary: 06/30/24 21:16 Discharge Ordered Notes: Location: Home kb Condition: Stable kb Diagnosis - Palpitations kb Followup: kb - With: Emergency Department - When: As needed - Reason: Worsening of condition Followup: kb - With: Private Physician - When: 2 - 3 days - Reason: Recheck today's complaints, Continuance of care, Re-evaluation by your physician Discharge Instructions: - Discharge Summary Sheet kb - Palpitations, [id number] kb Forms: - Medication Reconciliation Form kb - Antibiotic Education kb - Prescription Opioid Use kb - Patient Portal Instructions kb - Leadership Thank You Letter kb Signatures: Dispatcher [employer] EDSarah Liu, BENCH LOOM WEAVER-C JAY-Rocio Anaya, RN RN ph Corrections: (The following items were deleted from the chart) 19:47 19:46 Allergies: EGG DERIVED; ph ph
[2024-07-01 05:03] VITALS: TEMP 97.9
[2024-07-01 05:08] VITALS: BP 102/72; O2SAT 97
== END 2024-06-30 22:00 | disposition home or self-care (01) ==
LOC: ER 19:20
DX: R00.2 Palpitations (principal); R07.9 Chest pain, unspecified; R51.9 Headache, unspecified; F41.9 Anxiety disorder, unspecified
CPT/HCPCS: 36415; 71045; 80048; 83735; 83880; 84484; 85025; 99284